=== PATIENT | female | born 1985 | race African-American/Black ===

== ENCOUNTER 2018-07-26 16:18 | Emergency (ER) | payer MEDICAID ==
--- NOTE | 2018-07-26 17:18 | ED Physician Documentation ---
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 supplementation as well as hydrochlorothiazide presents with muscle cramps and lethargy and fast heart rate similar to prior episodes of hypocalcemia.) Review of Systems Ten Systems: 10 systems reviewed and negative Constitutional: denies: Fever, Chills Nose: reports: Reviewed and negative Cardiac: reports: Reviewed and negative Respiratory: reports: Reviewed and negative PD PAST MEDICAL HISTORY - Past Medical History Cardiovascular: Hypertension Endocrine/Autoimmune: HyPOthyroidism - Present Medications Home Medications: Ambulatory Orders Medication Instructions Recorded Confirmed Bisacodyl [Dulcolax] 07/26/18 Calcitriol [Rocaltrol] 07/26/18 Calcium Carbonate [Calcium] 07/26/18 07/26/18 Calcium Carbonate [Tums (Calcium 07/26/18 Carbonate 500mg)] Levothyroxine [Synthroid] 07/26/18 Magnesium 07/26/18 Montelukast Sodium [Singulair] 07/26/18 Norgestimate-Ethinyl Estradiol 07/26/18 [Vqt-[id number]-Dohxbsau Tablet] - Allergies Allergies/Adverse Reactions: Allergies Allergy/AdvReac Type Severity Reaction Status Date / Time latex Allergy Anaphylaxis Verified 07/26/18 16:35 - Social History Does the pt smoke?: No Smoking Status: Never smoker Does the pt drink ETOH?: No Does the pt have substance abuse?: No - Family History Family history: reports: Non contributory - Immunizations Immunizations are current?: Yes PD ED PE NORMAL - Vitals Vital signs reviewed: Yes - General General: Alert and oriented X 3, No acute distress, Other (hirsute, short stature) - HEENT HEENT: PERRL, EOMI - Neck Neck: Supple, no meningeal sign, No bony TTP - Cardiac Cardiac: RRR, No murmur - Respiratory Respiratory: No respiratory distress, Clear bilaterally - Abdomen Abdomen: Non tender - Back Back: No CVA TTP, No spinal TTP - Derm Derm: Normal color, Warm and dry - Extremities Extremities: No deformity, No tenderness to palpate - Neuro Neuro: Alert and oriented X 3, Normal speech - Psych Psych: Normal mood, Normal affect Results - Vitals Vitals: Vital Signs - 24 hr 07/26/18 07/26/18 07/26/18 16:32 18:51 21:24 Temperature 37.1 C Heart Rate 84 62 Respiratory 15 16 Rate Blood Pressure 150/99 H 134/85 H 134/94 H O2 Saturation 98 98 Oxygen O2 Source Room air - Labs Labs: Laboratory Tests 07/26/18 07/26/18 07/26/18 17:05 17:05 17:05 WBC 3.6 L RBC 4.61 Hgb 13.9 Hct 41.0 MCV 89.0 MCH 30.2 MCHC 33.9 RDW 13.9 Plt Count 236 MPV 7.9 Neut # (Auto) 2.1 Lymph # (Auto) 1.2 L [place] # (Auto) 0.2 Eos # (Auto) 0.1 Baso # (Auto) 0.0 Absolute Nucleated RBC 0.00 Nucleated RBC % 0.1 Sodium 139 Potassium 3.8 Chloride 100 L Carbon Dioxide 30 Anion Gap 9.0 BUN 6 Creatinine 0.9 Estimated GFR (MDRD) 87 L Glucose 134 H Calcium 6.4 L* Magnesium 1.9 Total Bilirubin 0.5 AST 29 ALT 13 Alkaline Phosphatase 81 Total Creatine Kinase 209 Total Protein 7.7 Albumin 3.9 Globulin 3.8 Albumin/Globulin Ratio 1.0 Lipase 45 Serum HCG, Qual NEGATIVE 07/26/18 07/26/18 19:34 21:21 WBC RBC Hgb Hct MCV MCH MCHC RDW Plt Count MPV Neut # (Auto) Lymph # (Auto) Mills # (Auto) Eos # (Auto) Baso # (Auto) Absolute Nucleated RBC Nucleated RBC % Sodium Potassium Chloride Carbon Dioxide Anion Gap BUN Creatinine Estimated GFR (MDRD) Glucose Calcium 6.7 L 7.5 L Magnesium Total Bilirubin AST ALT Alkaline Phosphatase Total Creatine Kinase Total Protein Albumin Globulin Albumin/Globulin Ratio Lipase Serum HCG, Qual PD MEDICAL DECISION MAKING - ED course ED course: 33-year-old woman with recurrent hypocalcemia due to a genetic issue presents with symptoms of same and found to have a critically low calcium. She was administered 2 g of calcium gluconate with improvement in her symptoms but not much, and repeat calcium level at that point was only 0.3 units higher. Another 2 g of calcium were administered and her calcium level was much better. Departure - Departure Disposition: 01 Home, Self Care Clinical Impression: Hypocalcemia, [place] syndrome Condition: Good Record reviewed to determine appropriate education?: Yes Instructions: ED Hypocalcemia Comments: Continue your regular calcium supplements. Return if worse or for new issues.
[2018-07-26 17:41] LABS: ALBUMIN 3.9 g/dL (3.2-5.5); BILIRUBIN,TOTAL 0.5 mg/dL (0.2-1.0); CALCIUM 6.4 mg/dL (8.5-10.3); CREATININE 0.9 mg/dL (0.4-1.0); MAGNESIUM 1.9 mg/dL (1.7-2.8); TOTAL PROTEIN 7.7 g/dL (6.7-8.2)
[2018-07-26] MEDS ORDERED: CALCIUM GLUCONATE 2,000 MG in SODIUM CHLORIDE 0.9% 100ML 100 ML IV STA ×2 (17:42→20:07)
[2018-07-26 18:48] LABS: BASOPHILS % (AUTO) 1.2 %; EOSINOPHILS # (AUTO) 0.1 10^3/uL (0.0-0.7); EOSINOPHILS % (AUTO) 1.7 %; HGB - HEMOGLOBIN 13.9 g/dL (12.0-16.0); LYMPHOCYTES # (AUTO) 1.2 10^3/uL (1.5-3.5); LYMPHOCYTES % (AUTO) 34.1 %; MEAN CORPUSCULAR HEMOGLOBIN 30.2 pg (27.0-31.0); MEAN CORPUSCULAR HGB CONC 33.9 g/dL (32.0-36.0); MEAN PLATELET VOLUME 7.9 fL (7.9-10.8); MONOCYTES # (AUTO) 0.2 10^3/uL (0.0-1.0); MONOCYTES % (AUTO) 5.6 %; NEUTROPHILS # (AUTO) 2.1 10^3/uL (1.5-6.6); NEUTROPHILS % (AUTO) 57.4 %; PLT - PLATELET COUNT 236 10^3/uL (130-450); RED BLOOD COUNT 4.61 10^6/uL (4.20-5.40); RED CELL DISTRIBUTION WIDTH 13.9 % (12.0-15.0); WHITE BLOOD COUNT 3.6 x10^3/uL (4.8-10.8)
[2018-07-26 19:56] LABS: HCG,QUALITATIVE BLOOD NEGATIVE
[2018-07-26 21:25] VITALS: BP 134/94
== END 2018-07-26 21:52 | disposition home or self-care (01) ==
LOC: ED 16:18
DX: E83.51 Hypocalcemia (principal); I10 Essential (primary) hypertension; Q78.1 Polyostotic fibrous dysplasia
CPT/HCPCS: 36415; 80053; 82310; 82550; 83690; 83735; 84703; 85025; 96365; 96376; 99283

== ENCOUNTER 2018-09-10 14:13 | Outpatient (CLI) | payer MEDICAID | END 2018-09-10 14:14 | disposition critical access hospital (66) | LOC: EMS 14:13 | PROVIDERS: ATTEND Surgery | DX: R07.9 Chest pain, unspecified (principal) | CPT/HCPCS: A0425; A0429; A0999 ==

== ENCOUNTER 2018-09-10 14:32 | Inpatient (IN) | payer MEDICAID ==
[2018-09-10] MEDS ORDERED: CALCIUM GLUCONATE 2,000 MG in SODIUM CHLORIDE 0.9% 100ML 100 ML IV STA ×2 (14:46→18:27)
--- NOTE | 2018-09-10 14:49 | ED Physician Documentation ---
History of Present Illness - Stated complaint Stated Complaint: CHEST PX - Chief complaint Chief Complaint: Cardiac - History obtained from History obtained from: Patient, Family, EMS - History of Present Illness Timing: How many days ago (Several days ago) Pain level max: 7 Pain level now: 6 - Additonal information Additional information: 33-year-old female with a history of Karrie's hereditary osteodystrophy, pseudo-hypoparathyroidism type Ia. She states that she feels like her calcium has become recurrently low and she is having diffuse muscle cramping as well as chest pain. She is on calcium at home but has not had her levels checked lately. This is an ongoing issue for her. Nothing makes it better or worse currently. Review of Systems Ten Systems: 10 systems reviewed and negative Constitutional: denies: Fever, Chills Ears: denies: Ear pain Nose: denies: Rhinorrhea / runny nose, Congestion Respiratory: denies: Cough GI: denies: Abdominal Pain, Nausea, Vomiting, Diarrhea : denies: Dysuria Skin: denies: Rash Musculoskeletal: denies: Neck pain, Back pain Neurologic: denies: Headache PD PAST MEDICAL HISTORY - Past Medical History Cardiovascular: Hypertension Endocrine/Autoimmune: HyPOthyroidism - Present Medications Home Medications: Ambulatory Orders Medication Instructions Recorded Confirmed Bisacodyl [Dulcolax] 07/26/18 Calcitriol [Rocaltrol] 07/26/18 Calcium Carbonate [Calcium] 07/26/18 07/26/18 Calcium Carbonate [Tums (Calcium 07/26/18 Carbonate 500mg)] Levothyroxine [Synthroid] 07/26/18 Magnesium 07/26/18 Montelukast Sodium [Singulair] 07/26/18 Norgestimate-Ethinyl Estradiol 07/26/18 [Saz-Ak-Ovmnjmxm Tablet] - Allergies Allergies/Adverse Reactions: Allergies Allergy/AdvReac Type Severity Reaction Status Date / Time latex Allergy Anaphylaxis Verified 09/10/18 14:37 - Social History Does the pt smoke?: No Smoking Status: Never smoker Does the pt drink ETOH?: No Does the pt have substance abuse?: No - Immunizations Immunizations are current?: Yes PD ED PE NORMAL - Vitals Vital signs reviewed: Yes - General General: Alert and oriented X 3, No acute distress, Well developed/nourished, Other (Hirsute, short statured) - HEENT HEENT: PERRL, Moist mucous membranes - Neck Neck: Supple, no meningeal sign - Cardiac Cardiac: RRR, Strong equal pulses - Respiratory Respiratory: No respiratory distress, Clear bilaterally - Abdomen Abdomen: Soft, Non tender, Non distended - Derm Derm: Warm and dry, No rash - Extremities Extremities: No calf tenderness / cord - Neuro Neuro: Alert and oriented X 3 - Psych Psych: Normal mood, Normal affect Results - Vitals Vitals: Vital Signs - 24 hr 09/10/18 09/10/18 09/10/18 14:34 15:00 15:30 Temperature 35.9 C L Heart Rate 78 76 77 Respiratory 16 16 16 Rate Blood Pressure 142/99 H 125/92 H O2 Saturation 99 97 98 09/10/18 09/10/18 09/10/18 16:30 18:17 20:04 Temperature 36.5 C Heart Rate 80 85 80 Respiratory 13 16 13 Rate Blood Pressure 118/87 H 128/70 133/89 H O2 Saturation 98 99 98 09/10/18 21:07 Temperature Heart Rate 81 Respiratory 18 Rate Blood Pressure 125/75 O2 Saturation 99 Oxygen O2 Source Room air - EKG (time done) 1443 Rate: Rate (enter#) (77) Rhythm: NSR Colo: Normal Intervals: Normal OH QRS: Normal Ischemia: Normal ST segments - Labs Labs: Laboratory Tests 09/10/18 09/10/18 09/10/18 17:45 17:45 17:45 WBC 3.9 L RBC 4.76 Hgb 14.2 Hct 41.9 MCV 88.0 MCH 29.9 MCHC 33.9 RDW 13.6 Plt Count 250 MPV 7.5 L Neut # (Auto) 2.0 Lymph # (Auto) 1.6 [place] # (Auto) 0.2 Eos # (Auto) 0.1 Baso # (Auto) 0.0 Absolute Nucleated RBC 0.01 Nucleated RBC % 0.2 VBG pH Ionized Calcium Sodium 139 Potassium 4.2 Chloride 100 L Carbon Dioxide 32 Anion Gap 7.0 BUN 9 Creatinine 0.8 Estimated GFR (MDRD) 100 Glucose 98 Calcium 6.8 L Total Bilirubin 0.4 AST 26 ALT 18 Alkaline Phosphatase 83 Troponin I < 0.04 Total Protein 7.3 Albumin 3.8 Globulin 3.5 Albumin/Globulin Ratio 1.1 Lipase 43 09/10/18 09/10/18 09/10/18 17:45 21:00 21:00 WBC RBC Hgb Hct MCV MCH MCHC RDW Plt Count MPV Neut # (Auto) Lymph # (Auto) Pine # (Auto) Eos # (Auto) Baso # (Auto) Absolute Nucleated RBC Nucleated RBC % VBG pH 7.329 7.301 L Ionized Calcium 0.84 L 1.00 L Sodium Potassium Chloride Carbon Dioxide Anion Gap BUN Creatinine Estimated GFR (MDRD) Glucose Calcium 7.4 L Total Bilirubin AST ALT Alkaline Phosphatase Troponin I Total Protein Albumin Globulin Albumin/Globulin Ratio Lipase PD MEDICAL DECISION MAKING - ED course Complexity details: reviewed old records, reviewed results, re-evaluated patient, considered differential, d/w patient ED course: 33-year-old female with [place]'s hereditary osteodystrophy, calcium was replaced with 4 g of calcium gluconate over several hours in the emergency department. Ionized calcium continues to be low as is her total calcium and she is still having muscle cramping. Therefore will place in observation for further care. Discussed the case with the hospitalist who accepts. This document was made in part using voice recognition software. While efforts are made to proofread this document, sound alike and grammatical errors may occur. Departure - Departure Disposition: ED Place in Observation Clinical Impression: Hypocalcemia, Karrie hereditary osteodystrophy Hypoparathyroidism Qualifiers: Hypoparathyroidism type: unspecified Qualified Code(s): E20.9 - Hypopa rathyroidism, unspecified Condition: Stable
[2018-09-10 18:01] LABS: BASOPHILS % (AUTO) 1.2 %; EOSINOPHILS # (AUTO) 0.1 10^3/uL (0.0-0.7); EOSINOPHILS % (AUTO) 1.6 %; HGB - HEMOGLOBIN 14.2 g/dL (12.0-16.0); LYMPHOCYTES # (AUTO) 1.6 10^3/uL (1.5-3.5); LYMPHOCYTES % (AUTO) 41.2 %; MEAN CORPUSCULAR HEMOGLOBIN 29.9 pg (27.0-31.0); MEAN CORPUSCULAR HGB CONC 33.9 g/dL (32.0-36.0); MEAN PLATELET VOLUME 7.5 fL (7.9-10.8); MONOCYTES # (AUTO) 0.2 10^3/uL (0.0-1.0); MONOCYTES % (AUTO) 5.9 %; NEUTROPHILS % (AUTO) 50.1 %; PLT - PLATELET COUNT 250 10^3/uL (130-450); RED BLOOD COUNT 4.76 10^6/uL (4.20-5.40); RED CELL DISTRIBUTION WIDTH 13.6 % (12.0-15.0); WHITE BLOOD COUNT 3.9 x10^3/uL (4.8-10.8)
[2018-09-10 18:03] LABS: VBG PH 7.329 (7.31-7.41)
[2018-09-10 18:12] LABS: ALBUMIN 3.8 g/dL (3.2-5.5); ALBUMIN/GLOBULIN RATIO 1.1 (1.0-2.2); BILIRUBIN,TOTAL 0.4 mg/dL (0.2-1.0); CALCIUM 6.8 mg/dL (8.5-10.3); CREATININE 0.8 mg/dL (0.4-1.0); TOTAL PROTEIN 7.3 g/dL (6.7-8.2)
[2018-09-10] MEDS ORDERED: SODIUM CHLORIDE 0.9% 1,000 ML IV ONE (18:27)
[2018-09-10 21:08] LABS: VBG PH 7.301 (7.31-7.41)
[2018-09-10 23:25] LABS: ABG BASE EXCESS 4.2 mmol/L (-2.0-3.0); ABG HCO3 30.8 mmol/L (22.0-26.0); ABG OXYGEN SATURATION 96 % (94-98); ABG PCO2 54 mmHg (34-45); ABG PH 7.38 (7.35-7.45); ABG PO2 82 mmHg (80-100); ABG TCO2 32.5 MMOL/L (21.0-29.0); ALLEN TEST POSITIVE
[2018-09-11] MEDS ORDERED: SODIUM CHLORIDE FLUSH 0.9% 10 ML SYRINGE ONE (00:06)
--- NOTE | 2018-09-11 00:12 | HISTORY & PHYSICAL EXAMINATION ---
Chief Complaint - Chief Complaint Chief Complaint: muscle cramps and wheezing History of Present Illness - Admitted From Admitted From:: [facility] ED - History Obtained From History obtained from: patient - History of Present Illness HPI Comment/Other: Patient is a 33 y/o female with Karrie Hereditary Osteodystrophy, Pseudohypoparathyroidism Type 1A, asthma, hypothyroidism, Hypertension, pre- diabetes and Vitamin D Deficiency who presented to the ED today with wheezing and muscle cramps. She lives with her grandmother in [place]. She recently moved there from [place]. She reports that she received some stressful news concerning her family today and began having difficulty breathing and wheezing. She also adds that her grandmother with whom she lives smokes and it significantly affects her breathing. Finally it has been very cold in the house and there isn't sufficient ventillation. She has a midsternal chest pain which is reproducible on palpation. In the ED she was found to have a calcium level of 6.8. She was given 4g of calcium gluconate with only mild improvement in her levels. She was initially present for admission for hypocalcemia. However when I arrived at bedside for this exam, the patient appeared dyspneic. Her wheezing was audible 2 feet away. She appeared to have conversational dyspnea. She has a ventolin inhaler at home to use as needed. She has not used it in a long time. She did not use it today when she started wheezing because she didn't think her dyspnea was very significant. However she reported having worsening difficulty in breathing since arriving in the ED. She reports history of constipation due to pain meds she takes for chronic back pain. She denies fevers. She is morbidly obese, with a hidalgo appearance and wide neck circumference. She would be a difficult intubation if it was warranted. She is supposed to be on a CPAP at home but does not have one. As a result of her clinical presentation, she is being admitted for further management. History - Past Medical History Cardiovascular: reports: Hypertension Endocrine/Autoimmune: reports: HyPOthyroidism, Other ([place] hereditary osteodystrophy, Pseudohypoparathyroidism type 1) - Past Surgical History General: reports: Other (hernia repair) - Family & Social History Family History Comment/Other: Maternal Grandmother: valvular heart disease Living arrangement: At home Living Situation: Unknown (with grandmother) Social History Notes: She recently moved to [place] from [place] to live with her grandmother. She is independent of activities of daily living. She cannot drive. Uses public transportation. Waiting for job placement. Used to work at a [employer] in [place]. - Substance History Use: Uses substance without health or social issues: Cannabis - POLST POLST Status: Full Code Meds/Allgy - Home Medications Home Medications: Ambulatory Orders Medication Instructions Recorded Confirmed Bisacodyl [Dulcolax] 07/26/18 Calcitriol [Rocaltrol] 07/26/18 Calcium Carbonate [Calcium] 07/26/18 07/26/18 Calcium Carbonate [Tums (Calcium 07/26/18 Carbonate 500mg)] Levothyroxine [Synthroid] 07/26/18 Magnesium 07/26/18 Montelukast Sodium [Singulair] 07/26/18 Norgestimate-Ethinyl Estradiol 07/26/18 [Pdo-Bk-Aabizcuy Tablet] - Allergies Allergies/Adverse Reactions: Allergies Allergy/AdvReac Type Severity Reaction Status Date / Time latex Allergy Anaphylaxis Verified 09/10/18 14:37 Review of Systems - Constitutional Constitutional: reports: Chills. denies: Weakness, Poor appetite - Eyes Eyes: denies: Pain, Blurred vision, Dipolpia - Ears, Nose & Throat Ears, Nose & Throat: denies: Ear pain, Hearing loss, Nasal pain, Sore throat - Cardiovascular Cariovascular: denies: Irregular heart rate, Chest pain, Edema, Syncope - Respiratory Respiratory: reports: Wheezing, SOB at rest, Pleuritic pain. denies: Cough, Sputum production - Gastrointestinal Gastrointestinal: reports: Constipation. denies: Black stools, Nausea, Vomiting - Genitourinary Genitourinary: denies: Dysuria, Frequency, Urgency, Hematuria - Musculoskeletal Musculoskeletal: reports: Back pain - Integumentary Integumentary: reports: Dryness. denies: Rash, Lesions - Neurological Neurological: denies: Headache, Dizziness, Numbness - Psychiatric Psychiatric: denies: Depression, Anxiety, Suicidal - Endocrine Endocrine: denies: Polyuria, Polydypsia - Hematologic/Lymphatic Hematologic/Lymphatic: denies: Anemia, Bruising, Petechiae Prior Level of Functionality: Patient is independent of activities of daily living. She is able to cook for herself and do other jobs but she cannot drive. She uses public transportation Exam - Vital Signs Vital Signs: Vital Signs x48h Temp Pulse Resp BP Pulse Ox 09/10/18 23:40 68 14 131/93 H 97 09/10/18 22:58 77 13 135/103 H 97 09/10/18 21:07 81 18 125/75 99 09/10/18 20:04 36.5 C 80 13 133/89 H 98 09/10/18 18:17 85 16 128/70 99 09/10/18 16:30 80 13 118/87 H 98 - Physical Exam General Appearance: positive: Alert, Moderate distress (moderate respiratory distress), Other (Conversational dyspnea) Eyes Bilateral: positive: Normal inspection, PERRL, EOMI ENT: positive: Other (Wide neck circumferemce) Respiratory: positive: Chest non-tender (reproducible), Wheezes, Other (Decreased breath sounds) Cardiovascular: positive: Tachycardia Abdomen: positive: Non-tender, Nml bowel sounds, No distention. negative: Guarding, Rebound Skin: positive: Color nml, No rash, Warm, Dry Extremities: positive: Non-tender, Full ROM, Other (Fingers, especially 4th and 5th digits appear very short. Hands proportionately smaller) Neurologic/Psychiatric: positive: Oriented x3 Sepsis Event Note (H) - Sepsis Criteria Sepsis Criteria: Recorded Heart Rate greater than 90 bpm, WBC count greater than 12,000 or less than 4000 Conclusion/Plan - Problem List (1) Asthma exacerbation, mild Conclusion/Plan: Multiple triggers: Sudden new stressors related to family, second hand smoke exposure at home and cold temperatures. Patient admitted to the ICU with plan to initiate bipap Solumedrol 40mg q4hrs. Duoneb q4hrs prn (2) Karrie hereditary osteodystrophy Conclusion/Plan: Congenital, Chronic This is associated with Pseudohypoparathyroidism Type 1A. (PHP Type 1A) PHP Type 1A is an autosomal dominant disease with [id number] mutation in the gene GNAS1. This leads to decrease in sensitivity of the PTH receptors to PTH Karrie Hereditary syndrome is a constellation of findings associated with PHP Type 1A These include: Round facies, short stature, short fourth metatarsal bones obesity, subcutaneous calcifications and developemental delay. The patient exhibits most of this. (3) Hypocalcemia Conclusion/Plan: Likely 2/2 [place] hereditary osteodystrophy. Patient received 4g of Calcium gluconate in the ED. Will recheck in the am and correct as indicated Expect improvement in muscle cramps with correction of calcium levels. Will check Vit D, Mg and Phos (4) Hypothyroidism Conclusion/Plan: Will resume levothyroxine once verified Qualifiers: Hypothyroidism type: unspecified Qualified Code(s): E03.9 - Hypothyroidism, unspecified (5) Hypertension Conclusion/Plan: Not on any medications currently. Used to be on HCTZ. Will order a prn medication if SBP> 160 (6) Pre-diabetes Conclusion/Plan: In light of administering solumedrol for asthma, will monitor blood glucose and order a sliding scale as indicated - Lab Results Fish Bones: 09/11/18 04:15 09/11/18 04:15 Core Measures - Anticipated LOS I expect patient to be DC'd or transferred within 96 hours.: Yes - DVT/VTE - Prophylaxis VTE/DVT Device ordered at admit?: Yes VTE/DVT Prophylaxis med ordered at admit?: Yes
[2018-09-11] MEDS: methylPREDNISolone SUCCINATE 40 MG/ML VIAL IVP SCH ×5 (00:44→23:39)
[2018-09-11] MEDS: SODIUM CHLORIDE FLUSH 0.9% 10 ML SYRINGE IVP SCH ×4 (00:44→23:39)
[2018-09-11 04:25] LABS: BASOPHILS % (AUTO) 0.4 %; EOSINOPHILS % (AUTO) 0.3 %; HGB - HEMOGLOBIN 14.1 g/dL (12.0-16.0); LYMPHOCYTES # (AUTO) 0.7 10^3/uL (1.5-3.5); LYMPHOCYTES % (AUTO) 14.8 %; MEAN CORPUSCULAR HEMOGLOBIN 29.9 pg (27.0-31.0); MEAN CORPUSCULAR HGB CONC 34.3 g/dL (32.0-36.0); MEAN CORPUSCULAR VOLUME 87.3 fL (81.0-99.0); MEAN PLATELET VOLUME 7.6 fL (7.9-10.8); MONOCYTES # (AUTO) 0.1 10^3/uL (0.0-1.0); NEUTROPHILS # (AUTO) 4.2 10^3/uL (1.5-6.6); NEUTROPHILS % (AUTO) 82.5 %; PLT - PLATELET COUNT 211 10^3/uL (130-450); RED BLOOD COUNT 4.72 10^6/uL (4.20-5.40); RED CELL DISTRIBUTION WIDTH 13.9 % (12.0-15.0)
[2018-09-11 04:30] LABS: CALCIUM 7.7 mg/dL (8.5-10.3); CREATININE 0.7 mg/dL (0.4-1.0)
[2018-09-11 04:52] LABS: HB2 TOTAL 14.8 g/dL; HEMOGLOBIN A1C 0.44 g/dL; HEMOGLOBIN A1C % 4.9 % (4.6-6.2)
[2018-09-11 05:24] LABS: VBG PH 7.368 (7.31-7.41)
[2018-09-11] MEDS ORDERED: CALCIUM GLUCONATE 2,000 MG in SODIUM CHLORIDE 0.9% 100ML 100 ML IV ONE ×2 (05:46→12:30)
[2018-09-11] MEDS: INSULIN ASPART 300 UNIT/3 ML PEN SUBQ SCH ×4 (08:21→20:32)
[2018-09-11] MEDS: ACETAMINOPHEN 325 MG TABLET PO PRN ×2 (10:00→13:58)
[2018-09-11 10:24] LABS: CALCIUM 8.1 mg/dL (8.5-10.3); PHOSPHORUS 3.8 mg/dL (2.5-4.6)
[2018-09-11 10:29] LABS: VBG PH 7.342 (7.31-7.41)
[2018-09-11] MEDS: IPRATROPIUM/ALBUTEROL 3 ML NEB INH PRN ×2 (11:14→15:31)
[2018-09-11] MEDS: MAGNESIUM OXIDE 400 MG TABLET PO SCH ×2 (11:54→20:32)
[2018-09-11] MEDS: CHOLECALCIFEROL 5,000 UNIT CAPSULE PO SCH (11:55)
[2018-09-11] MEDS: CALCIUM CARBONATE CHEW 500 MG TABLET PO SCH ×3 (13:58→21:39)
--- NOTE | 2018-09-11 14:54 | PROVIDER PROGRESS NOTE ---
Assessment/Plan - Problem List (1) Asthma exacerbation, mild Assessment/Plan: Patient no longer wheezing and not tachypneic, Continue steroids and inhalers. Move out of ICU today. Assess with ambulation. 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 She does not have an established PCP yet, since moving here from [place] 1 month ago. Discussed with Case Management; she has [employer] Insurance meaning that she will need to go off [facility] for a PCP. I will ask Social Work to consult, and maybe have a family meeting with the person she moved in with on [facility]. (3) Hypoparathyroidism Qualifiers: Hypoparathyroidism type: unspecified Qualified Code(s): E20.9 - Hypoparathyroidism, unspecified Assessment/Plan: Patient knows how to manage this. She has not filled her meds since last parmacy pick-up in [place] 4 weeks ago, I suspect she ran out of all or most, precipitating these serum abnormalities. Restart her usual meds. (4) Hypocalcemia Assessment/Plan: Will replace and restart her usual meds. (5) Pre-diabetes Assessment/Plan: Continue ss Insulin coverage while here. She needs outpatient management including weight reduction. (6) Morbid obesity with BMI of 50.0-59.9, adult Assessment/Plan: As above. Will ask for PT eval. Possible DCh in am tomorrow. - Current Meds Current Meds: Current Medications Generic Name Dose Route Start Last Admin Trade Name Freq PRN Reason Stop Dose Admin Acetaminophen 650 mg 09/10/18 23:09 09/11/18 13:58 Tylenol PO 650 mg Q4HR PRN Administration Pain 1 to 4 Albuterol/Ipratropium 3 ml 09/10/18 23:25 09/11/18 11:14 Duoneb INH 3 ml Q4HR PRN Administration Wheezing Calcium Carbonate/Glycine 500 mg 09/11/18 14:00 09/11/18 13:58 Tums PO 500 mg TID GAIL Administration Cholecalciferol 5,000 unit 09/11/18 12:00 09/11/18 11:55 Vitamin D3 PO 5,000 unit DAILY GAIL Administration Insulin Aspart 1 - 5 unit 09/11/18 08:00 09/11/18 11:57 Novolog SUBQ 2 unit 0800,1200,1700,2100 AGIL Administration Protocol Magnesium Oxide 400 mg 09/11/18 12:00 09/11/18 11:54 Mag Ox PO 400 mg BID GAIL Administration Methylprednisolone 40 mg 09/11/18 00:00 09/11/18 11:54 Solu-Medrol (40mg Vial) IVP 40 mg Q6HR GAIL Administration Sodium Chloride 10 ml 09/11/18 01:00 09/11/18 06:27 Normal Saline Flush 0.9% IVP 10 ml 0100,0900,1700 GAIL Administration - Lab Result Fish Bone Diagrams: 09/11/18 04:15 09/11/18 04:15 - Additional Planning My Orders: My Active Orders 09/11/18 08:16 Peak Expiratory Flow Rate (PEF [RC] .tid 09/11/18 12:00 Cholecalciferol [Vitamin D3] 5,000 unit PO DAILY Magnesium Oxide [Mag Ox] 400 mg PO BID 09/11/18 14:00 Calcium Carbonate [Tums] 500 mg PO TID 09/11/18 15:30 CALCIUM, RFLX TO IONIZED CA IF [CHEM] Routine Subjective - Subjective Patient Reports: Feeling Better, Resting Comfortably Objective Vital Signs: Vital Signs - 24 hr 09/10/18 09/10/18 09/10/18 15:00 15:30 16:30 Temperature Heart Rate 76 77 80 Heart Rate [ Monitoring electrodes] Respiratory 16 16 13 Rate Blood Pressure 125/92 H 118/87 H Blood Pressure [Left Radial artery] O2 Saturation 97 98 98 09/10/18 09/10/18 09/10/18 18:17 20:04 21:07 Temperature 36.5 C Heart Rate 85 80 81 Heart Rate [ Monitoring electrodes] Respiratory 16 13 18 Rate Blood Pressure 128/70 133/89 H 125/75 Blood Pressure [Left Radial artery] O2 Saturation 99 98 99 09/10/18 09/10/18 09/11/18 22:58 23:40 01:00 Temperature 36.8 C Heart Rate 77 68 Heart Rate [ 69 Monitoring electrodes] Respiratory 13 14 14 Rate Blood Pressure 135/103 H 131/93 H Blood Pressure 127/88 H [Left Radial artery] O2 Saturation 97 97 95 09/11/18 09/11/18 09/11/18 04:00 07:38 07:50 Temperature 36.7 C 36.8 C Heart Rate 71 Heart Rate [ 67 82 Monitoring electrodes] Respiratory 12 16 16 Rate Blood Pressure Blood Pressure 134/95 H 130/96 H [Left Radial artery] O2 Saturation 93 96 09/11/18 09/11/18 09/11/18 07:51 11:14 13:00 Temperature 36.8 C 37.1 C Heart Rate 71 92 Heart Rate [ 104 H Monitoring electrodes] Respiratory 16 15 14 Rate Blood Pressure Blood Pressure 159/106 H [Left Radial artery] O2 Saturation 96 96 Oxygen O2 Source Room air I&O (Last 24 Hrs): Intake and Output Totals x24h 09/09/18 09/10/18 09/11/18 23:59 23:59 23:59 Intake Total 1240 1290 Output Total 0 Balance 1240 1290 General: Alert HEENT: Atraumatic, Mucous membr. moist/pink Neck: Supple, Other (short and obese neck) Neuro: Alert Cardiovascular: Regular rate, Other (distant heart sounds due toobese body habitus) Respiratory: No respiratory distress, Breath sounds nml Abdomen: Soft, Other (obese) Extremities: Other (1+ pre-tibial edema) - Results Results: Laboratory Results WBC 5.0 x10^3/uL (4.8-10.8) 09/11/18 04:15 RBC 4.72 10^6/uL (4.20-5.40) 09/11/18 04:15 Hgb 14.1 g/dL (12.0-16.0) 09/11/18 04:15 Hct 41.2 % (37.0-47.0) 09/11/18 04:15 MCV 87.3 fL (81.0-99.0) 09/11/18 04:15 MCH 29.9 pg (27.0-31.0) 09/11/18 04:15 MCHC 34.3 g/dL (32.0-36.0) 09/11/18 04:15 RDW 13.9 % (12.0-15.0) 09/11/18 04:15 Plt Count 211 10^3/uL (130-450) 09/11/18 04:15 MPV 7.6 fL (7.9-10.8) L 09/11/18 04:15 Neut # (Auto) 4.2 10^3/uL (1.5-6.6) 09/11/18 04:15 Lymph # (Auto) 0.7 10^3/uL (1.5-3.5) L 09/11/18 04:15 Taylor # (Auto) 0.1 10^3/uL (0.0-1.0) 09/11/18 04:15 Eos # (Auto) 0.0 10^3/uL (0.0-0.7) 09/11/18 04:15 Baso # (Auto) 0.0 10^3/uL (0.0-0.1) 09/11/18 04:15 Absolute Nucleated RBC 0.00 x10^3/uL 09/11/18 04:15 Nucleated RBC % 0.0 /100WBC 09/11/18 04:15 Bld Gas Analysis Time 2323 09/10/18 23:10 Sample Site RIGHT RADIAL 09/10/18 23:10 ABG pH 7.38 (7.35-7.45) 09/10/18 23:10 ABG pCO2 54 mmHg (34-45) H 09/10/18 23:10 ABG pO2 82 mmHg (80-100) 09/10/18 23:10 ABG HCO3 30.8 mmol/L (22.0-26.0) H 09/10/18 23:10 ABG Total CO2 32.5 MMOL/L (21.0-29.0) H 09/10/18 23:10 ABG O2 Saturation 96 % (94-98) 09/10/18 23:10 ABG Base Excess 4.2 mmol/L (-2.0-3.0) H 09/10/18 23:10 [place] Test POSITIVE 09/10/18 23:10 VBG pH 7.342 (7.31-7.41) 09/11/18 10:05 Ionized Calcium 0.99 mmol/L (1.15-1.33) L 09/11/18 10:05 Sodium 139 mmol/L (135-145) 09/11/18 04:15 Potassium 4.0 mmol/L (3.5-5.0) 09/11/18 04:15 Chloride 102 mmol/L (101-111) 09/11/18 04:15 Carbon Dioxide 30 mmol/L (21-32) 09/11/18 04:15 Anion Gap 7.0 (6-13) 09/11/18 04:15 BUN 9 mg/dL (6-20) 09/11/18 04:15 Creatinine 0.7 mg/dL (0.4-1.0) 09/11/18 04:15 Estimated GFR (MDRD) 117 (>89) 09/11/18 04:15 Glucose 112 mg/dL (70-100) H 09/11/18 04:15 POC Whole Bld Glucose 183 mg/dL (70 - 100) H 09/11/18 11:41 Glycated Hemoglobin 4.9 % (4.6-6.2) 09/11/18 04:15 Estim Average Glucose 94 (70-100) 09/11/18 04:15 Calcium 8.1 mg/dL (8.5-10.3) L 09/11/18 10:05 Ionized Calcium YES 09/11/18 10:05 Phosphorus 3.8 mg/dL (2.5-4.6) 09/11/18 10:05 Magnesium 2.0 mg/dL (1.7-2.8) 09/11/18 04:15 Total Bilirubin 0.4 mg/dL (0.2-1.0) 09/10/18 17:45 AST 26 IU/L (10-42) 09/10/18 17:45 ALT 18 IU/L (10-60) 09/10/18 17:45 Alkaline Phosphatase 83 IU/L (42-121) 09/10/18 17:45 Troponin I < 0.04 ng/mL (<0.49) 09/10/18 17:45 Total Protein 7.3 g/dL (6.7-8.2) 09/10/18 17:45 Albumin 3.7 g/dL (3.2-5.5) 09/11/18 04:15 Globulin 3.5 g/dL (2.1-4.2) 09/10/18 17:45 Albumin/Globulin Ratio 1.1 (1.0-2.2) 09/10/18 17:45 Lipase 43 U/L (22-51) 09/10/18 17:45 MRSA Surveill Initial NEGATIVE (NEGATIVE) 09/11/18 00:00 Sepsis Event Note (H) - Sepsis Criteria Sepsis Criteria: Recorded Heart Rate greater than 90 bpm, WBC count greater than 12,000 or less than 4000
[2018-09-11 15:52] LABS: CALCIUM 8.1 mg/dL (8.5-10.3)
[2018-09-11 15:57] LABS: VBG PH 7.364 (7.31-7.41)
[2018-09-11] MEDS: CALCIUM CITRATE 250 MG TABLET PO SCH ×2 (16:56→20:32)
[2018-09-11] MEDS: SODIUM CHLORIDE FLUSH 0.9% 10 ML SYRINGE IVP PRN (23:39)
[2018-09-12 05:18] LABS: BASOPHILS % (AUTO) 0.1 %; HGB - HEMOGLOBIN 13.8 g/dL (12.0-16.0); LYMPHOCYTES # (AUTO) 0.8 10^3/uL (1.5-3.5); LYMPHOCYTES % (AUTO) 6.4 %; MEAN CORPUSCULAR HEMOGLOBIN 29.6 pg (27.0-31.0); MEAN CORPUSCULAR HGB CONC 33.9 g/dL (32.0-36.0); MEAN CORPUSCULAR VOLUME 87.3 fL (81.0-99.0); MEAN PLATELET VOLUME 7.8 fL (7.9-10.8); MONOCYTES # (AUTO) 0.2 10^3/uL (0.0-1.0); MONOCYTES % (AUTO) 1.8 %; NEUTROPHILS # (AUTO) 11.6 10^3/uL (1.5-6.6); NEUTROPHILS % (AUTO) 91.7 %; PLT - PLATELET COUNT 259 10^3/uL (130-450); RED BLOOD COUNT 4.66 10^6/uL (4.20-5.40); RED CELL DISTRIBUTION WIDTH 13.6 % (12.0-15.0); WHITE BLOOD COUNT 12.6 x10^3/uL (4.8-10.8)
[2018-09-12 05:24] LABS: CALCIUM 8.4 mg/dL (8.5-10.3); CREATININE 0.7 mg/dL (0.4-1.0)
[2018-09-12] MEDS: CALCIUM CARBONATE CHEW 500 MG TABLET PO SCH ×2 (06:34→07:59)
[2018-09-12] MEDS: methylPREDNISolone SUCCINATE 40 MG/ML VIAL IVP SCH ×2 (06:34→12:00)
[2018-09-12] MEDS: SODIUM CHLORIDE FLUSH 0.9% 10 ML SYRINGE IVP PRN (06:34)
[2018-09-12] MEDS ORDERED: LEVOTHYROXINE 100 MCG TABLET PO SCH (07:00)
[2018-09-12] MEDS ORDERED: LEVOTHYROXINE 75 MCG TABLET PO SCH (07:00)
[2018-09-12] MEDS: INSULIN ASPART 300 UNIT/3 ML PEN SUBQ SCH ×2 (07:58→11:55)
[2018-09-12] MEDS: CALCIUM CITRATE 250 MG TABLET PO SCH ×2 (07:59→12:00)
[2018-09-12] MEDS: CHOLECALCIFEROL 5,000 UNIT CAPSULE PO SCH (07:59)
[2018-09-12] MEDS: SODIUM CHLORIDE FLUSH 0.9% 10 ML SYRINGE IVP SCH (07:59)
[2018-09-12] MEDS: MAGNESIUM OXIDE 400 MG TABLET PO SCH (07:59)
--- NOTE | 2018-09-12 09:01 | Discharge Plan ---
Discharge Plan Disposition: Home, Self Care Condition: Stable Prescriptions: Calcitriol [Rocaltrol] 1.5 mcg PO DAILY #180 capsule Calcium Carbonate [Antacid] 1,000 mg PO BID #300 tab.chew Cetirizine [ZyrTEC] 10 mg PO DAILY #30 tablet Cholecalciferol [Vitamin D3] 5,000 unit PO DAILY #30 capsule Docusate Sodium 100 mg PO BID #60 capsule Fluticasone/Salmeterol [Advair 500-50 Diskus] 1 puffs INH BID #60 blst.w.dev Levothyroxine Sodium [Synthroid] 175 mcg PO QDAC #30 tablet Magnesium Oxide 400 mg PO BID #60 tablet Montelukast [Singulair] 10 mg PO DAILY #30 tablet Norgestimate-Ethinyl Estradiol [Bir-Mx-Qvgjqumk Tablet] 1 tab PO DAILY #30 tablet Diet: Regular Activity Restrictions: Activity as Tolerated Shower Restrictions: No Instruction Topics: Hypocalcemia Dc, Parathyroid Hormone, Weight Manage Get Started Additional Instructions or Follow Up instructions: You were admitted to treat an asthmatic attack and low calcium. It appears you must have run out of your medications, which led to these problems. You are being discharged with prescriptions for only a 1 month supply of your usual medications, the prescriptions were electronically sent to [facility] in [place] (since there was no choice of pharmacy indicated by you, and I could not reach your Grandmother to discuss). You need to find a local Primary Care Provider to prescribe these for you and have follow-up appointments. Please contact the offices that were provided to you by our staff, to get an appointment there in this month of September with a PCP. If you have new or worsening symptoms, come to the Emergency Room. No Smoking: If you smoke, Please STOP! Call for help.
[2018-09-12] MEDS: IPRATROPIUM/ALBUTEROL 3 ML NEB INH PRN (09:03)
[2018-09-12 09:19] VITALS: BP 131/81
[2018-09-12 09:33] LABS: CALCIUM 8.4 mg/dL (8.5-10.3); PHOSPHORUS 2.8 mg/dL (2.5-4.6)
--- NOTE | 2018-09-12 11:27 | ADVANCE CARE PLANNING NOTE ---
Advance Care Planning - Date/Time Date: 09/12/18 Time: 10:00 - Purpose of encounter Text: To establish her wishes regarding her care AND To establish her understanding of her hereditary condition AND To establish her plan since moving to [facility] 4 weeks ago, in order to live with her grandmother - Parties in attendance Parties in attendance: I spoke to the patient in her room in her bed - Decisional capacity Decisional capacity of: This is unknown, since she has a has a history of developmental delay due to her [place] Hereditary Osteodystrophy. I attempted to assess her thinking process and her memory and understanding of different topics. She will need longer assessment and review of old records from her [place] caregivers. - Subjective/Patient's story Subjective/Patient's story: She came to the ER when she was SOB, from an asthmatic exacerbation. Her labs showed that she was very hypocalcemic, requiring admission for replacement of Calcium. In the process of admission, she stated that she was put of her meds, and that she had not yet established with a PCP. The Pharmacist here was able to confirm that she last filled her prescriptions in [place] 1 month ago. She subsequently moved to [facility] to live with her grandmother. - Objective/Medical story Objective/Medical Story: This is a 33 y/o black female, who has [place]'s Hereditary Osteodystrophy, leaving her with developmental delay, sghort digits, short stature, short neck and pseudohypoparathyroidism with need for Ca and vit D replacement. She was a very hard stick for iv placement and Anesthesia needed to be called in for iv start. She was in a mild asthmatic exacerbation, gor steroids and nebs and improved overnight. She used to have CPAP device for sleep apnea management but it is still packed in a moving box. She was in the ICU for BIPAP ordered at admission, but never needed that started. She also needed iv calcium replacement plus her oral meds continued. Her calcium level is better after 2 days of treatment and she is stable to be [facility] today. He Social History is significant: Her father , her mother has little or no contact with her, she was living in a "Home" in [place] for the past month, she has a 22 year old younger brother that cannot be responsible for her. The patient was working at a [employer] center, in [facility]. The grandmother reached out to the patient and agreed to take her in, so the patient moved here 4 weeks ago. She has no established caregiver here yet. First I was told that the patient's [employer] Insurance required that she get [place]. next, I was told today that her Insurance just changed today (? first of the month) to [facility] and she could get a PCP locally. Next, when the grandmother came in today, she told the staff that the patient derian has an appointment pending at the [facility]. The patient will be discharged with a 1 month prescriptions supply of all her medications. Since I could not reach the grandmother, I e-sent the prescriptions to [facility] in [place] (where she lives) and handed the RN a stack of paper prescriptions taht they can fill anywhere they like. - Goals of Care Goals of care determinations: She will be established with a PCP at the [facility]. Social work provided the garndmother with other resources to help the patient. - Plan Plan: As above in Goals of Care. - Code Status Code Status: Attempt Resuscitation - Time Spent on Advance Care Planning Time spent on advance care plannin min
--- NOTE | 2018-09-17 14:56 | DISCHARGE SUMMARY ---
Physician: Kamla Ramirez MD DATE OF ADMISSION: 09/10/2018 DATE OF DISCHARGE: 09/12/2018 HISTORY OF PRESENT ILLNESS: This is a 33-year-old black female with a history of [place] Hereditary Osteodystrophy, pseudohypoparathyroidism type 1A, asthma, hypothyroidism, hypertension, prediabetes and morbid obesity, who moved to to [facility] 4 weeks ago from [place] to live with her grandmother. The patient presented to the emergency room with marked shortness of breath, wheezing after getting stressful news and from the cold air in the apartment and exposure to tobacco smoke from her grandmother. In the emergency room, she was found to have a calcium level of 6.8 and was given 4 g of calcium gluconate and only had mild improvement in her levels. She was also very short of breath despite nebulizer treatment in the emergency room; was taking breaths between every word. She reported having run out of all of her medications; they were last filled one month ago in [place] (later confirmed by pharmacy here). She did not have an appointment with a PCP yet. She was supposed to be using a CPAP machine, but had not found it yet in the moving boxes from [place]. Patient was admitted to the ICU for management of her significant hypocalcemia and her significant shortness of breath, in preparation to use a BiPAP for supplemental oxygen and ventilation. HOSPITAL COURSE AND DISCHARGE DIAGNOSES 1. Asthma exacerbation, mild. The patient was started on IV steroids, nebulizers, and improved by 12 hours and did not need the BiPAP. She was kept on nebulizers while here, and her inhalers were prescribed for a 30-day supply at the time of discharge. Because of her hereditary condition, it is unclear if she understands the importance of staying on her medications and not running out. 2. [place] Hereditary Osteodystrophy. The patient carries this diagnosis and this includes short stature, obesity, short fingers, and developmental delay. Social Work had to reach out to her grandmother and confirmed that a new PCP appointment was made and that a discharge for this patient was safe. The patient did go home with her grandmother. 3. Hypoparathyroidism. The patient was put on her medications and told to fill the prescriptions. A 30-day supply was ordered until she sees her PCP. 4. Hypocalcemia. The patient required IV and p.o. calcium replacement. Her ionized calcium was very low at 1.1, but there were no signs of tetany. She was placed on her same regimen at the time of discharge. 5. Pre-diabetes. The patient's morbid obesity is adding to this problem. I attempted to assess her memory and her understanding of her disease processes in order to start education and recommendations. It will require longer evaluation and review of her records from [place] for further management of all her conditions. 6. Morbid obesity with a body mass index of 50-59 in an adult. Plan as in #5. LABS AND IMAGING: Reviewed and summarized above. ALLERGIES: LATEX. MEDICATIONS AT THE TIME OF DISCHARGE 1. Calcitriol 1.5 mcg p.o. daily. 2. Calcium carbonate 1000 mg p.o. b.i.d. 3. Zyrtec 10 mg daily. 4. Vitamin D3 5000 units daily. 5. Colace 100 mg b.i.d. 6. Advair Diskus 1 puff b.i.d. 7. Synthroid 175 mcg daily. 8. Magnesium oxide 400 mg b.i.d. 9. Singulair 10 mg p.o. daily. 10. TriLo-Sprintec 1 tab p.o. daily. CONDITION AT DISCHARGE: Stable. PHYSICAL EXAMINATION VITAL SIGNS: Blood pressure 131/81, heart rate 70-100 in sinus rhythm, afebrile, room air saturation 96%. HEENT: Morbid obesity. NECK: Morbidly obese and short neck. CHEST: Clear breath sounds anteriorly. Large breasts. HEART: Heart sounds are very distant. ABDOMEN: Soft, obese. I cannot rule out organomegaly. EXTREMITIES: No leg edema. 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 NEUROLOGIC: No focal signs except developmental delay. FOLLOWUP: The grandmother confirmed that there is an appointment pending with a new PCP. CODE STATUS: FULL CODE. Time required to complete this entire discharge, chart review, prescription orders: 60 minutes. TD: 09/17/2018 14:21 ASHLEE
== END 2018-09-12 13:04 | disposition home or self-care (01) | DRG 202 ==
LOC: EDUNIT# → ED 14:32 → ICU 23:09
PROVIDERS: ADMIT Internal Medicine; ATTEND Internal Medicine
DX: J45.901 Unspecified asthma with (acute) exacerbation (principal); Z68.43 Body mass index [BMI] 50.0-59.9, adult; Q78.1 Polyostotic fibrous dysplasia; E20.9 Hypoparathyroidism, unspecified; I10 Essential (primary) hypertension; E03.9 Hypothyroidism, unspecified; Z91.040 Latex allergy status; E83.51 Hypocalcemia; R73.03 Prediabetes; E66.01 Morbid (severe) obesity due to excess calories; Z77.22 Contact with and (suspected) exposure to environmental tobacco smoke (acute) (chronic); E55.9 Vitamin D deficiency, unspecified; R25.2 Cramp and spasm
CPT/HCPCS: 36415; 36600; 80048; 80053; 82040; 82306; 82310; 82330; 82803; 83036; 83690; 83735; 84100; 84484; 85025; 87150; 93005; 94150; 94640; 96365; 96366; 99284; 99285

== ENCOUNTER 2018-09-18 13:00 | Observation (INO) | payer MEDICAID ==
[2018-09-18 14:11] LABS: ALBUMIN 3.8 g/dL (3.2-5.5); BILIRUBIN,TOTAL 0.4 mg/dL (0.2-1.0); CALCIUM 6.3 mg/dL (8.5-10.3); CREATININE 0.6 mg/dL (0.4-1.0); TOTAL PROTEIN 7.7 g/dL (6.7-8.2)
[2018-09-18] MEDS ORDERED: SODIUM CHLORIDE 0.9% 1,000 ML IV ONE (16:29)
[2018-09-18] MEDS ORDERED: CALCIUM GLUCONATE 2,000 MG in SODIUM CHLORIDE 0.9% 100ML 100 ML IV STA (16:29)
--- NOTE | 2018-09-18 16:29 | ED Physician Documentation ---
History of Present Illness - Stated complaint Stated Complaint: HEART RACING/FOOT AND LEG PX - Chief complaint Chief Complaint: Cardiac - History obtained from History obtained from: Patient - History of Present Illness Timing: Today Pain level max: 0 Pain level now: 0 Improved by: calcium Worsened by: nothing - Additonal information Additional information: 33-year-old female with [place]'s syndrome. States that she is having muscle spasms and cramping again. Typical of her symptoms when she has hypocalcemia. Recently admitted for same. Review of Systems Ten Systems: 10 systems reviewed and negative Constitutional: denies: Fever, Chills Ears: denies: Ear pain Nose: denies: Rhinorrhea / runny nose, Congestion Throat: denies: Sore throat Cardiac: reports: Palpitations Respiratory: denies: Dyspnea, Cough GI: denies: Abdominal Pain, Nausea, Vomiting, Diarrhea Skin: denies: Rash Musculoskeletal: denies: Neck pain, Back pain Neurologic: denies: Headache PD PAST MEDICAL HISTORY - Past Medical History Cardiovascular: Hypertension Endocrine/Autoimmune: HyPOthyroidism, Other ([place] hereditary osteodystrophy, Pseudohypoparathyroidism type 1) - Past Surgical History General: Other (hernia repair) - Present Medications Home Medications: Ambulatory Orders Medication Instructions Recorded Confirmed Calcitriol [Rocaltrol] 1.5 mcg PO DAILY #180 capsule 09/12/18 09/18/18 Calcium Carbonate [Antacid] 1,000 mg PO BID #300 tab.chew 09/12/18 09/18/18 Cetirizine [ZyrTEC] 10 mg PO DAILY #30 tablet 09/12/18 09/18/18 Cholecalciferol [Vitamin D3] 5,000 unit PO DAILY #30 capsule 09/12/18 09/18/18 Docusate Sodium 100 mg PO BID #60 capsule 09/12/18 09/18/18 Fluticasone/Salmeterol [Advair 1 puffs INH BID #60 blst.w.dev 09/12/18 09/18/18 500-50 Diskus] Levothyroxine Sodium [Synthroid] 175 mcg PO QDAC #30 tablet 09/12/18 09/18/18 Magnesium Oxide 400 mg PO BID #60 tablet 09/12/18 09/18/18 Montelukast [Singulair] 10 mg PO DAILY #30 tablet 09/12/18 09/18/18 Norgestimate-Ethinyl Estradiol 1 tab PO DAILY #30 tablet 09/12/18 09/18/18 [[id number] Tablet] - Allergies Allergies/Adverse Reactions: Allergies Allergy/AdvReac Type Severity Reaction Status Date / Time latex Allergy Anaphylaxis Verified 09/18/18 13:07 - Social History Does the pt smoke?: No Smoking Status: Never smoker Does the pt drink ETOH?: No Does the pt have substance abuse?: No - Immunizations Immunizations are current?: Yes - POLST POLST Status: Full Code PD ED PE NORMAL - Vitals Vital signs reviewed: Yes - General General: Alert and oriented X 3, No acute distress - HEENT HEENT: Moist mucous membranes - Neck Neck: Supple, no meningeal sign - Cardiac Cardiac: RRR - Respiratory Respiratory: No respiratory distress, Clear bilaterally - Abdomen Abdomen: Soft, Non tender, Non distended - Back Back: No spinal TTP - Derm Derm: Warm and dry - Extremities Extremities: No tenderness to palpate, No calf tenderness / cord - Neuro Neuro: Alert and oriented X 3 - Psych Psych: Normal mood, Normal affect Results - Vitals Vitals: Vital Signs - 24 hr 09/18/18 09/18/18 13:05 16:01 Temperature 36.9 C 37.1 C Heart Rate 93 79 Respiratory 20 16 Rate Blood Pressure 106/78 129/77 O2 Saturation 97 98 Oxygen O2 Source Room air - EKG (time done) 1320 Rate: Rate (enter#) (94) Rhythm: NSR [place]: Normal Intervals: Normal PA QRS: Normal Ischemia: Non specific changes Compare to prior EKG: Unchanged from prior EKG - Labs Labs: Laboratory Tests 09/18/18 09/18/18 13:07 13:30 Sodium 140 Potassium 3.9 Chloride 102 Carbon Dioxide 30 Anion Gap 8.0 BUN 11 Creatinine 0.6 Estimated GFR (MDRD) 140 Glucose 114 H Calcium 6.3 L* Phosphorus 4.5 Magnesium 2.4 Total Bilirubin 0.4 AST 28 ALT 16 Alkaline Phosphatase 91 Total Protein 7.7 Albumin 3.8 Globulin 3.9 Albumin/Globulin Ratio 1.0 Lipase 55 H PD MEDICAL DECISION MAKING - ED course Complexity details: reviewed old records, reviewed results, re-evaluated patient, considered differential, d/w patient, d/w peoplesoft hcm consultant ED course: Patient with recurrent hypocalcemia secondary to Karrie's hereditary osteodystrophy and hyperparathyroidism. Given IV fluids and IV calcium. Will admit for further replacement of her hypocalcemia. Discussed the case with the hospitalist who accepts This document was made in part using voice recognition software. While efforts are made to proofread this document, sound alike and grammatical errors may occur. 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
--- NOTE | 2018-09-18 16:43 | HISTORY & PHYSICAL EXAMINATION ---
Chief Complaint - Chief Complaint Chief Complaint: Muscle spasms with associated palpitations, myalgias History of Present Illness - Admitted From Admitted From:: home - History Obtained From Records Reviewed: yes History obtained from: patient Exam Limitations: none - History of Present Illness HPI Comment/Other: 33-year-old female Camden Hereditary Osteodystrophy, Pseudohypoparathyroidism Type 1A, asthma, hypothyroidism, Hypertension, pre-diabetes and Vitamin D Deficiency who presented. States that she is having muscle spasms and cramping again. Typical of her symptoms when she has hypocalcemia. Recently admitted for same. Patient was recently discharged from hospitalist service on 09/12/18 for asthma exacerbation and hypocalcemia whuich appears to be recurrent. Denies chest pain but did mention some dizziness with palpitation and no QTc seen on wall and floor tiler, She is morbidly obese, with a hidalgo appearance and wide neck circumference, Pickwick[place]- like. She is supposed to be on a CPAP at home but does not have one.As a result of her clinical presentation, she is being admitted for further management, correction of lytes and due to her poor IV vascular access will need a right IJ placement as attempt for peripheral site was unsuccessful. dr Darnell was consulted for a port-a-cath plcmt for tomorrow am. History - Past Medical History Cardiovascular: reports: Hypertension Endocrine/Autoimmune: reports: HyPOthyroidism, Other (Camden hereditary osteodystrophy, Pseudohypoparathyroidism type 1) Musculoskeletal: reports: Fatigue, Other (myalgias ) - Past Surgical History General: reports: Other (hernia repair) - Family & Social History Family History Comment/Other: Maternal Grandmother: valvular heart disease Social History Notes: She recently moved to [place] from [place] to live with her grandmother. She is independent of activities of daily living. She cannot drive. Uses public transportation. Waiting for job placement. Used to work at a [employer] in [place]. - Substance History Use: Uses substance without health or social issues: Cannabis - POLST POLST Status: Full Code Meds/Allgy - Home Medications Home Medications: Ambulatory Orders Medication Instructions Recorded Confirmed Calcitriol [Rocaltrol] 1.5 mcg PO DAILY #180 capsule 09/12/18 09/18/18 Calcium Carbonate [Antacid] 1,000 mg PO BID #300 tab.chew 09/12/18 09/18/18 Cetirizine [ZyrTEC] 10 mg PO DAILY #30 tablet 09/12/18 09/18/18 Cholecalciferol [Vitamin D3] 5,000 unit PO DAILY #30 capsule 09/12/18 09/18/18 Docusate Sodium 100 mg PO BID #60 capsule 09/12/18 09/18/18 Fluticasone/Salmeterol [Advair 1 puffs INH BID #60 blst.w.dev 09/12/18 09/18/18 500-50 Diskus] Levothyroxine Sodium [Synthroid] 175 mcg PO QDAC #30 tablet 09/12/18 09/18/18 Magnesium Oxide 400 mg PO BID #60 tablet 09/12/18 09/18/18 Montelukast [Singulair] 10 mg PO DAILY #30 tablet 09/12/18 09/18/18 Norgestimate-Ethinyl Estradiol 1 tab PO DAILY #30 tablet 09/12/18 09/18/18 [[id number] Tablet] - Allergies Allergies/Adverse Reactions: Allergies Allergy/AdvReac Type Severity Reaction Status Date / Time latex Allergy Anaphylaxis Verified 09/18/18 13:07 Review of Systems - Constitutional Constitutional: reports: Fatigue, Weakness. denies: Fever, Chills, Malaise, Poor appetite, Night sweats - Eyes Eyes: denies: Pain, Irritation, Amaurosis, Field loss, Vision loss - Ears, Nose & Throat Ears, Nose & Throat: denies: Tinnitus, Vertigo, Nosebleeds - Cardiovascular Cariovascular: reports: Palpitations, Edema. denies: Irregular heart rate, Chest pain, Syncope - Respiratory Respiratory: denies: Cough, Sputum production, Wheezing, Hemoptysis - Gastrointestinal Gastrointestinal: denies: Abdominal pain, Abdominal distention, Constipation, Diarrhea, Nausea, Coffee grounds emesis, Reflux/heartburn - Genitourinary Genitourinary: denies: Dysuria, Frequency, Urgency, Hematuria - Musculoskeletal Musculoskeletal: reports: Muscle pain, Back pain, Muscle aches, Muscle weakness. denies: Joint swelling - Integumentary Integumentary: reports: Hair changes. denies: Pruritis, Lesions, Lumps, Pigment changes - Neurological Neurological: denies: Focal weakness, Headache, Dizziness, Numbness, Memory problems, Seizures - Psychiatric Psychiatric: denies: Depression, Anxiety, Suicidal, Delusions - Endocrine Endocrine: denies: Polyuria, Polydypsia, Intolerance to cold, Intolerance to heat - Hematologic/Lymphatic Hematologic/Lymphatic: denies: Anemia, Petechiae, Blood clots, Bleeding tendencies, Recurrent infections - All Other Systems All Other Systems: reports: Reviewed and negative Prior Level of Functionality: Patient is independent with home ADL's Exam - Vital Signs Reviewed Vital Signs: Yes Vital Signs: Vital Signs x48h Temp Pulse Resp BP Pulse Ox 09/18/18 16:01 37.1 C 79 16 129/77 98 09/18/18 13:05 36.9 C 93 20 106/78 97 Vital Signs 09/18/18 09/18/18 13:05 16:01 Temperature 36.9 C 37.1 C Heart Rate 93 79 Respiratory 20 16 Rate Blood Pressure 106/78 129/77 O2 Saturation 97 98 - Physical Exam General Appearance: positive: No acute distress, Alert, Anxious Eyes Bilateral: positive: Normal inspection, PERRL, Conjunctivae nml ENT: positive: Pharynx nml, No signs of dehydration Neck: positive: Nml inspection, Thyroid nml, No JVD, Trachea midline. negative: Thyromegaly, Lymphadenopathy (R), Lymphadenopathy (L), Carotid bruit Respiratory: positive: Chest non-tender, No respiratory distress, Breath sounds nml Cardiovascular: positive: Regular rate & rhythm, No murmur, No gallop. negative: Irregularly irregular, Systolic murmur, Gallop/S4 Peripheral Pulses: positive: 2+ Abdomen: positive: Non-tender, No organomegaly, Nml bowel sounds, No distention. negative: Tenderness Skin: positive: Color nml, No rash, Warm, Other. negative: Cyanosis (Scaly dry skin) Extremities: positive: Non-tender, Full ROM, Nml appearance, Pedal edema, Other (hands with deformities to MCP/DIP/PIP, and with some spasms along with BLLE spasms). negative: Calf tenderness, Joint swelling, Bandar's sign/cords Neurologic/Psychiatric: positive: Oriented x3, CN's nml (2-12), Motor nml, Sensation nml Conclusion/Plan - Problem List (1) Hypocalcemia Conclusion/Plan: Symptomatic hypocalcemia. Corrected calcium was 6.1, obtain phosp and mag levels and correct. Resume rocatrol, calcium carbonate to increase to 2g po Tid and titrate to an ionized calcium>4 with IV calcium gluconate to be administered as soon as peripheral line inserted, por-a-cath to be placed for long-term management of her symptomatic hypocalcemia. Surgery was consulted for this. Prolonged Qtc may be seen on ecg. Telemetry obs. (2) Karrie hereditary osteodystrophy Conclusion/Plan: Hx Camden hereditary osteodystrophy, Pseudohypoparathyroidism type 1. Would resume home meds. Needs por-a-cath, electrolyte repletion. (3) Hypoparathyroidism Conclusion/Plan: Hypocalcemic hypoparathyroidism, resume rocatrol, check phosp level, may need phosphate binders, low phosphate diet, parathyroid level which may be a moving target. Qualifiers: Hypoparathyroidism type: unspecified Qualified Code(s): E20.9 - Hypoparathyroidism, unspecified (4) Hypothyroidism Conclusion/Plan: Resume synthroid. Check TSH level. Qualifiers: Hypothyroidism type: acquired Qualified Code(s): E03.9 - Hypothyroidism, unspecified - Lab Results Lab results reviewed: Yes Elliott Bones: 09/18/18 13:30 Core Measures - Anticipated LOS I expect patient to be DC'd or transferred within 96 hours.: Yes - Issues Hospital Issues and Management Plan: Patient has poor vascular access which we will need to establish a permanent IV access line with a port-a-cath for ongoing IV calcium repletion. - DVT/VTE - Prophylaxis VTE/DVT Device ordered at admit?: No Not Ordered - Medical Reason: Contraindicated (Muscle spasms) VTE/DVT Prophylaxis med ordered at admit?: Yes - Stroke - Rehab Assessment Rehab services assessment to be ordered?: No Not Ordered - Medical Reason: Not indicated - AMI - Statin at Admit Aspirin Prescribed on Admit: No Not Ordered - Medical Reason: Not indicated
[2018-09-18] MEDS ORDERED: ONDANSETRON ODT 4 MG TABLET TL PRN (16:45)
[2018-09-18] MEDS ORDERED: SODIUM CHLORIDE FLUSH 0.9% 10 ML SYRINGE IVP PRN (16:45)
[2018-09-18] MEDS ORDERED: ACETAMINOPHEN 325 MG TABLET PO PRN (16:45)
[2018-09-18] MEDS ORDERED: HYDROcod/ACETAM 10 MG/325 MG TABLET PO PRN (16:45)
[2018-09-18] MEDS ORDERED: ZOLPIDEM 5 MG TABLET PO PRN (16:45)
[2018-09-18] MEDS ORDERED: CALCIUM GLUCONATE 2,000 MG in SODIUM CHLORIDE 0.9% 100ML 100 ML IV PRN (16:49)
[2018-09-18] MEDS ORDERED: CYCLOBENZAPRINE 10 MG TABLET PO PRN (16:54)
[2018-09-18 18:07] LABS: MAGNESIUM 2.4 mg/dL (1.7-2.8); PHOSPHORUS 4.5 mg/dL (2.5-4.6)
--- NOTE | 2018-09-18 19:00 | CONSULTATION NOTE ---
Referring Provider Name of Referring Provider:: Dr. 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 Multiple recent admissions with increasingly difficult venous access. Consultation requested regarding possible port placement. No hx prior clavicular or rib fractures, nor hx central lines per pt. History - Past Medical History Cardiovascular: reports: Hypertension Endocrine/Autoimmune: reports: HyPOthyroidism, Other (Alvo hereditary osteodystrophy, Pseudohypoparathyroidism type 1) Musculoskeletal: reports: Fatigue, Other (myalgias ) MRSA Hx?: No Other Past Medical History: Morbid obesity - Past Surgical History General: reports: Other (hernia repair) - Family & Social History Family History Comment/Other: Maternal Grandmother: valvular heart disease Living arrangement: At home Living Situation: With family Social History Notes: She recently moved to [place] from [place] to live with her grandmother. She is independent of activities of daily living. She cannot drive. Uses public transportation. Waiting for job placement. Used to work at a [employer] in [place]. - Substance History Use: Uses substance without health or social issues: Cannabis - POLST Patient has POLST: No POLST Status: Full Code Meds/Allgy - Home Medications Home Medications: Ambulatory Orders Medication Instructions Recorded Confirmed Calcitriol [Rocaltrol] 1.5 mcg PO DAILY #180 capsule 09/12/18 09/18/18 Calcium Carbonate [Antacid] 1,000 mg PO BID #300 tab.chew 09/12/18 09/18/18 Cetirizine [ZyrTEC] 10 mg PO DAILY #30 tablet 09/12/18 09/18/18 Cholecalciferol [Vitamin D3] 5,000 unit PO DAILY #30 capsule 09/12/18 09/18/18 Docusate Sodium 100 mg PO BID #60 capsule 09/12/18 09/18/18 Fluticasone/Salmeterol [Advair 1 puffs INH BID #60 blst.w.dev 09/12/18 09/18/18 500-50 Diskus] Levothyroxine Sodium [Synthroid] 175 mcg PO QDAC #30 tablet 09/12/18 09/18/18 Magnesium Oxide 400 mg PO BID #60 tablet 09/12/18 09/18/18 Montelukast [Singulair] 10 mg PO DAILY #30 tablet 09/12/18 09/18/18 Norgestimate-Ethinyl Estradiol 1 tab PO DAILY #30 tablet 09/12/18 09/18/18 [[id number]-[id number] Tablet] - Allergies Allergies/Adverse Reactions: Allergies Allergy/AdvReac Type Severity Reaction Status Date / Time latex Allergy Anaphylaxis Verified 09/18/18 13:07 Review of Systems - Hematologic/Lymphatic Hematologic/Lymphatic: denies: Bruising, Blood clots, Bleeding tendencies Exam - Vital Signs Reviewed Vital Signs: Yes Vital Signs: Vital Signs x48h Temp Pulse Pulse Resp BP Pulse Ox 09/18/18 18:24 37.3 C 92 20 98 09/18/18 16:01 37.1 C 79 16 129/77 98 09/18/18 13:05 36.9 C 93 20 106/78 97 - Physical Exam General Appearance: positive: No acute distress, Alert Eyes Bilateral: positive: No scleral icterus Neck: positive: No JVD, Trachea midline, Other (very short and large neck makes palpation of structures difficult). negative: Lymphadenopathy (R), Lymphadenopathy (L) Respiratory: positive: Chest non-tender, No respiratory distress, Breath sounds nml. negative: Wheezes, Rales, Rhonchi Cardiovascular: positive: Regular rate & rhythm, No murmur, No gallop, Other (clavicles palpably normal bilat; marked truncal obesity.) Abdomen: positive: Non-tender, No organomegaly, No distention, Other (obese) Extremities: positive: Pedal edema (mild bilat). negative: Calf tenderness Neurologic/Psychiatric: positive: Oriented x3 Conclusion/Plan - Diagnosis Diagnosis: Unfortunate 33 y female with Karrie's pseudo hypoparathyroidism and hypocalcemia, in need of venous access to facilitate ongoing treatment. - Plan Plan: Placement of a port was discussed including risks of bleeding, infection, malfunction, need for revision or replacement, difficulty with placement due to morbid obesity, etc, and consent obtained. Will schedule for tomorrow. - Lab Results Lab results reviewed: Yes Fish Bones: 09/18/18 13:30
[2018-09-18] MEDS ORDERED: CALCIUM CARBONATE CHEW 500 MG TABLET PO SCH (21:00)
[2018-09-18] MEDS: LACTATED RINGERS 1,000 ML IV SCH (21:05)
[2018-09-18] MEDS: SODIUM CHLORIDE FLUSH 0.9% 10 ML SYRINGE IVP SCH (21:05)
[2018-09-18] MEDS: DOCUSATE SODIUM 100 MG CAPSULE PO SCH (21:30)
[2018-09-18] MEDS: MAGNESIUM OXIDE 400 MG TABLET PO SCH (21:31)
[2018-09-18] MEDS: FAMOTIDINE 20 MG TABLET PO SCH (21:31)
[2018-09-18] MEDS: CALCIUM CARBONATE CHEW 500 MG TABLET PO SCH (21:31)
--- NOTE | 2018-09-18 22:02 | XRAY Report ---
Reason: preop port placement Procedure Date: 09/18/2018 Accession Number: [id number] / [id number] Procedure: XR - Chest 1 View X-Ray CPT Code: 41802 FULL RESULT: EXAM: CHEST RADIOGRAPHY EXAM DATE: 09/18/2018 08:00 PM. CLINICAL HISTORY: Preop port placement. COMPARISON: None. TECHNIQUE: 1 view. FINDINGS: Lungs/Pleura: No focal opacities evident. No pleural effusion. No pneumothorax. Mediastinum: Within exam limitations, the cardiomediastinal contour is normal. Other: None. IMPRESSION: Normal single view chest. RADIA
[2018-09-19] MEDS: BUDESONIDE 0.5 MG/2 ML NEB INH SCH ×4 (00:03→19:39)
[2018-09-19] MEDS: FORMOTEROL FUMARATE NEB 20 MCG/2 ML INH SCH ×4 (00:03→19:39)
[2018-09-19] MEDS: SODIUM CHLORIDE FLUSH 0.9% 10 ML SYRINGE IVP SCH ×3 (00:59→21:57)
[2018-09-19] MEDS: LEVOTHYROXINE 75 MCG TABLET PO SCH (06:16)
[2018-09-19] MEDS: LEVOTHYROXINE 100 MCG TABLET PO SCH (06:16)
[2018-09-19] MEDS: CALCIUM CARBONATE CHEW 500 MG TABLET PO SCH ×3 (06:16→21:48)
[2018-09-19] MEDS: LACTATED RINGERS 1,000 ML IV SCH ×2 (06:17→16:04)
[2018-09-19 06:25] LABS: VBG PH 7.483 (7.31-7.41)
[2018-09-19 06:36] LABS: ALBUMIN 3.3 g/dL (3.2-5.5); CREATININE 0.6 mg/dL (0.4-1.0); PHOSPHORUS 5.2 mg/dL (2.5-4.6)
[2018-09-19 06:37] LABS: CALCIUM 6.5 mg/dL (8.5-10.3)
[2018-09-19] MEDS ORDERED: CALCIUM GLUCONATE 2,000 MG in SODIUM CHLORIDE 0.9% 100ML 100 ML IV PRN (06:59)
[2018-09-19] MEDS ORDERED: CALCIUM GLUCONATE 1000 MG/10 ML VIAL ONE (07:50)
[2018-09-19] MEDS: CHOLECALCIFEROL 5,000 UNIT CAPSULE PO SCH (08:43)
[2018-09-19] MEDS: FAMOTIDINE 20 MG TABLET PO SCH ×2 (08:43→21:48)
[2018-09-19] MEDS: CETIRIZINE 10 MG TABLET PO SCH (08:43)
[2018-09-19] MEDS: MONTELUKAST 10 MG TABLET PO SCH (08:43)
[2018-09-19] MEDS: MAGNESIUM OXIDE 400 MG TABLET PO SCH ×2 (08:43→21:47)
[2018-09-19] MEDS: DOCUSATE SODIUM 100 MG CAPSULE PO SCH ×2 (08:43→21:48)
[2018-09-19] MEDS: NORGESTIMATE ETHINYL ESTRADIOL PO SCH (08:44)
[2018-09-19] MEDS: ENOXAPARIN 40 MG/0.4 ML SYRINGE SUBQ SCH (08:44)
[2018-09-19] MEDS: POLYETHYLENE GLYCOL 3350 17 GM PACKET PO SCH (08:44)
[2018-09-19] MEDS: SEVELAMER 800 MG TABLET PO SCH ×3 (08:45→16:54)
--- NOTE | 2018-09-19 10:25 | PROVIDER PROGRESS NOTE ---
Assessment/Plan - Problem List (1) Hypoparathyroidism Qualifiers: Hypoparathyroidism type: unspecified Qualified Code(s): E20.9 - Hypoparathyroidism, unspecified Assessment/Plan: clinically improving. Plan: Port placement today for anticipated need for ongoing venous access. - Current Meds Current Meds: Current Medications Generic Name Dose Route Start Last Admin Trade Name Freq PRN Reason Stop Dose Admin Budesonide 0.5 mg 09/18/18 19:00 09/19/18 00:03 Pulmicort INH Not Given RTBID GAIL Calcium Carbonate/Glycine 2,000 mg 09/18/18 22:00 09/19/18 06:16 Tums PO 2,000 mg TID GAIL Administration Cetirizine HCl 10 mg 09/19/18 09:00 09/19/18 08:43 Zyrtec PO 10 mg DAILY GAIL Administration Cholecalciferol 5,000 unit 09/19/18 09:00 09/19/18 08:43 Vitamin D3 PO 5,000 unit DAILY GAIL Administration Docusate Sodium 100 mg 09/18/18 21:00 09/19/18 08:43 Colace 100mg Capsule PO 100 mg BID GAIL Administration Enoxaparin Sodium 40 mg 09/19/18 09:00 09/19/18 08:44 Lovenox SUBQ 40 mg DAILY GA[facility] Administration Famotidine 20 mg 09/18/18 21:00 09/19/18 08:43 Pepcid PO 20 mg BID GAIL Administration Formoterol Fumarate 20 mcg 09/18/18 19:00 09/19/18 00:03 Perforomist INH Not Given RTBID GAIL Lactated Ringer's 1,000 mls @ 100 mls/hr 09/18/18 17:00 09/19/18 06:17 Lr IV 100 mls/hr .Q10H GAIL Administration Calcium Gluconate 2,000 mg/ 120 mls @ 480 mls/hr 09/19/18 06:59 09/19/18 09:0 9 Sodium Chloride IV Infused PRN PRN Infusion for corrected calcium <8.0 Levothyroxine Sodium 100 mcg 09/19/18 07:00 09/19/18 06:16 Synthroid PO 100 mcg QDAC GAIL Administration Levothyroxine Sodium 75 mcg 09/19/18 07:00 09/19/18 06:16 Synthroid PO 75 mcg QDAC GAIL Administration Magnesium Oxide 400 mg 09/18/18 21:00 09/19/18 08:43 Mag Ox PO 400 mg BID GAIL Administration Montelukast Sodium 10 mg 09/19/18 09:00 09/19/18 08:43 Singulair PO 10 mg DAILY GAIL Administration Norgestimate-Ethinyl 1 each 09/19/18 09:00 09/19/18 08:44 Estradiol [Tri-Lo- PO Not Given Sprintec Tablet] 1 DAILY GAIL Tab) Polyethylene Glycol 17 gm 09/19/18 09:00 09/19/18 08:44 Miralax PO Not Given DAILY GAIL Sevelamer HCl 800 mg 09/19/18 08:00 09/19/18 08:45 Renagel PO Not Given TIDWM GAIL Sodium Chloride 10 ml 09/18/18 17:00 09/19/18 08:44 Normal Saline Flush 0.9% IVP Not Given 0100,0900,1700 GAIL - Lab Result Lab results reviewed: Yes Fish Bone Diagrams: 09/19/18 06:15 - Diagnostic Imaging Results Diagnostic Imaging Results Comments: CXR: NAD - Additional Planning Condition/Complexity: Improved My Orders: My Active Orders 09/19/18 00:01 NPO except Meds at Midnight [DIET] 09/19/18 12:00 ceFAZolin [Ancef] 3 gm Sodium Chloride 0.9% 100Ml [Normal Saline 0.9% 100Ml] 100 ml IV ONCE Plan Discussed with:: Patient Time Spent: Less than 15 minutes Subjective - Subjective Patient Reports: Resting Comfortably Objective Vital Signs: Vital Signs - 24 hr 09/18/18 09/18/18 09/18/18 13:05 16:01 18:24 Temperature 36.9 C 37.1 C 37.3 C Heart Rate 93 79 Heart Rate [ 92 Radial] Respiratory 20 16 20 Rate Blood Pressure 106/78 129/77 Blood Pressure [Right Brachial artery] O2 Saturation 97 98 98 09/18/18 09/19/18 09/19/18 20:47 00:00 04:31 Temperature 37.1 C 36.6 C 36.7 C Heart Rate Heart Rate [ 90 70 73 Radial] Respiratory 20 20 20 Rate Blood Pressure Blood Pressure 134/65 H 136/73 H 107/71 [Right Brachial artery] O2 Saturation 97 96 95 09/19/18 07:30 Temperature 36.7 C Heart Rate Heart Rate [ 70 Radial] Respiratory 22 Rate Blood Pressure Blood Pressure 132/88 H [Right Brachial artery] O2 Saturation 97 Oxygen O2 Source Room air I&O (Last 24 Hrs): Intake and Output Totals x24h 09/17/18 09/18/18 09/19/18 23:59 23:59 23:59 Intake Total 240 1040 Balance 240 1040 Respiratory: Chest non-tender, No respiratory distress - Results Results: Laboratory Results VBG pH 7.483 (7.31-7.41) H 09/19/18 06:15 Ionized Calcium 0.77 mmol/L (1.15-1.33) L* 09/19/18 06:15 Sodium 140 mmol/L (135-145) 09/19/18 06:15 Potassium 4.0 mmol/L (3.5-5.0) 09/19/18 06:15 Chloride 100 mmol/L (101-111) L 09/19/18 06:15 Carbon Dioxide 31 mmol/L (21-32) 09/19/18 06:15 Anion Gap 9.0 (6-13) 09/19/18 06:15 BUN 11 mg/dL (6-20) 09/19/18 06:15 Creatinine 0.6 mg/dL (0.4-1.0) 09/19/18 06:15 Estimated GFR (MDRD) 140 (>89) 09/19/18 06:15 Glucose 91 mg/dL (70-100) 09/19/18 06:15 Calcium 6.5 mg/dL (8.5-10.3) L* 09/19/18 06:15 Phosphorus 5.2 mg/dL (2.5-4.6) H 09/19/18 06:15 Magnesium 2.4 mg/dL (1.7-2.8) 09/18/18 13:07 Total Bilirubin 0.4 mg/dL (0.2-1.0) 09/18/18 13:30 AST 28 IU/L (10-42) 09/18/18 13:30 ALT 16 IU/L (10-60) 09/18/18 13:30 Alkaline Phosphatase 91 IU/L (42-121) 09/18/18 13:30 Total Protein 7.7 g/dL (6.7-8.2) 09/18/18 13:30 Albumin 3.3 g/dL (3.2-5.5) 09/19/18 06:15 Globulin 3.9 g/dL (2.1-4.2) 09/18/18 13:30 Albumin/Globulin Ratio 1.0 (1.0-2.2) 09/18/18 13:30 Lipase 55 U/L (22-51) H 09/18/18 13:30 ABX Reporting Has patient been on IV antibiotics over the past 48 hours?: No
[2018-09-19] MEDS: CALCITRIOL 0.25 MCG CAPSULE PO SCH (11:19)
[2018-09-19] MEDS ORDERED: ceFAZolin 3 GM in SODIUM CHLORIDE 0.9% 100ML 100 ML IV ONE (12:00)
[2018-09-19] MEDS ORDERED: ceFAZolin 1 GM VIAL ONE (13:35)
[2018-09-19] MEDS ORDERED: LIDOCAINE 1% 50 ML MDV ONE (13:35)
--- NOTE | 2018-09-19 14:00 | ANESTHESIA ---
Pre-Anesthesia VS, & Labs - Diagnosis Diagnosis Unfortunate 33 y female with Dexter's pseudo hypoparathyroidism and hypocalcemia, in need of venous access to facilitate ongoing treatment. - Procedure Port placement Vital Signs: Temp Pulse Resp BP Pulse Ox 36.7 C 75 20 120/88 H 97 09/19/18 11:52 09/19/18 11:52 09/19/18 11:52 09/19/18 11:52 09/19/18 11:52 Height 5 ft 3 in Weight (kg) 133 kg Body Mass Index 51.9 - NPO >8 hours - Is Patient ?: Waiver signed - Lab Results Current Lab Results: Laboratory Tests 09/19/18 06:15: VBG pH 7.483 H, Ionized Calcium 0.77 L* 09/19/18 06:15: Sodium 140, Potassium 4.0, Chloride 100 L, Carbon Dioxide 31, Anion Gap 9.0, BUN 11, Creatinine 0.6, Estimated GFR (MDRD) 140, Glucose 91, Calcium 6.5 L*, Phosphorus 5.2 H, Albumin 3.3 09/18/18 13:30: Sodium 140, Potassium 3.9, Chloride 102, Carbon Dioxide 30, Anion Gap 8.0, BUN 11, Creatinine 0.6, Estimated GFR (MDRD) 140, Glucose 114 H, Calcium 6.3 L*, Total Bilirubin 0.4, AST 28, ALT 16, Alkaline Phosphatase 91, Total Protein 7.7, Albumin 3.8, Globulin 3.9, Albumin/Globulin Ratio 1.0, Lipase 55 H 09/18/18 13:07: Phosphorus 4.5, Magnesium 2.4 Lab results reviewed: Yes Fish Bones: 09/19/18 06:15 Home Medications and Allergies Active Medications Acetaminophen (Tylenol) 650 mg PO Q4HR PRN PRN Reason: Pain 1 to 4 Hydrocodone Bitart/Acetaminophen (Levels 10 Mg/325 Mg) 1 tab PO Q4HR PRN PRN Reason: Pain 8 to 10 Budesonide (Pulmicort) 0.5 mg INH RTBID [facility] Last Admin: 09/19/18 13:22 Dose: Not Given Calcitriol (Rocaltrol) 1.5 mcg PO DAILY [facility] Last Admin: 09/19/18 11:19 Dose: 1.5 mcg Calcium Carbonate/Glycine (Tums) 2,000 mg PO TID [facility] Last Admin: 09/19/18 06:16 Dose: 2,000 mg Cetirizine HCl (Zyrtec) 10 mg PO DAILY [facility] Last Admin: 09/19/18 08:43 Dose: 10 mg Cholecalciferol (Vitamin D3) 5,000 unit PO DAILY [facility] Last Admin: 09/19/18 08:43 Dose: 5,000 unit Cyclobenzaprine HCl (Flexeril) 10 mg PO TID PRN PRN Reason: muscle spasms Docusate Sodium (Colace 100mg Capsule) 100 mg PO BID [facility] Last Admin: 09/19/18 08:43 Dose: 100 mg Enoxaparin Sodium (Lovenox) 40 mg SUBQ DAILY [facility] Last Admin: 09/19/18 08:44 Dose: 40 mg Famotidine (Pepcid) 20 mg PO BID [facility] Last Admin: 09/19/18 08:43 Dose: 20 mg Formoterol Fumarate (Perforomist) 20 mcg INH RTBID [facility] Last Admin: 09/19/18 13:22 Dose: Not Given Lactated Ringer's (Lr) 1,000 mls @ 100 mls/hr IV .Q10H [facility] Last Admin: 09/19/18 06:17 Dose: 100 mls/hr Calcium Gluconate 2,000 mg/ (Sodium Chloride) 120 mls @ 480 mls/hr IV PRN PRN PRN Reason: for corrected calcium <8.0 Last Infusion: 09/19/18 09:09 Dose: Infused Levothyroxine Sodium (Synthroid) 100 mcg PO QDAC [facility] Last Admin: 09/19/18 06:16 Dose: 100 mcg Levothyroxine Sodium (Synthroid) 75 mcg PO QDAC [facility] Last Admin: 09/19/18 06:16 Dose: 75 mcg Magnesium Oxide (Mag Ox) 400 mg PO BID [facility] Last Admin: 09/19/18 08:43 Dose: 400 mg Montelukast Sodium (Singulair) 10 mg PO DAILY [facility] Last Admin: 09/19/18 08:43 Dose: 10 mg Ondansetron HCl (Zofran Odt) 4 mg TL Q6HR PRN PRN Reason: Nausea / Vomiting Norgestimate-Ethinyl Estradiol [Tri-Lo- Sprintec Tablet] 1 Tab) 1 each PO DAILY [facility] Last Admin: 09/19/18 08:44 Dose: Not Given Polyethylene Glycol (Miralax) 17 gm PO DAILY [facility] Last Admin: 09/19/18 08:44 Dose: Not Given Sevelamer HCl (Renagel) 800 mg PO TIDWM [facility] Last Admin: 09/19/18 13:18 Dose: Not Given Sodium Chloride (Normal Saline Flush 0.9%) 10 ml IVP PRN PRN PRN Reason: NEEDED PER PROVIDER ORDERS Sodium Chloride (Normal Saline Flush 0.9%) 10 ml IVP 0100,0900,1700 [facility] Last Admin: 09/19/18 08:44 Dose: Not Given Zolpidem Tartrate (Ambien) 5 mg PO QPM PRN PRN Reason: Insomnia Allergies/Adverse Reactions: Allergies Allergy/AdvReac Type Severity Reaction Status Date / Time latex Allergy Anaphylaxis Verified 09/18/18 13:07 Anes History & Medical History - Anesthetic History Anesthesia Complications: reports: No previous complications Family history of Anesthesia Complications: Denies Family history of Malignant Hyperthermia: Denies - Medical History Cardiovascular: reports: Hypertension Musculoskeletal: reports: Fatigue, Other Endocrine/Autoimmune: reports: HyPOthyroidism, Other (Dexter hereditary osteodystrophy, Pseudohypoparathyroidism type 1) Smoking Status: Never smoker Other Past Medical History: Morbid obesity - Surgical History General: Other (hernia repair) Exam General: Alert, Oriented x3, Cooperative Dental: WNL Mouth Openin Fingerbreadth Mallampati classification: III Thyromental Distance: 4-6 cm Respiratory: Lungs clear, Normal breath sounds, Decreased breath sounds Cardiovascular: Regular rate Mental/Cognitive Status: Alert/Oriented X3, Normal for patient Cognitive Status: Within normal limits Plan Anesthesia Type: MAC Consent for Procedure(s) Verified and Reviewed: Yes Code Status: Attempt Resuscitation ASA classification: 3-Severe systemic disease Is this case an emergency?: No
--- NOTE | 2018-09-19 14:56 | PROVIDER PROGRESS NOTE ---
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) Current Medications - Current Medications Current Medications: Active Medications Acetaminophen (Tylenol) 650 mg PO Q4HR PRN PRN Reason: Pain 1 to 4 Hydrocodone Bitart/Acetaminophen ([place] 10 Mg/325 Mg) 1 tab PO Q4HR PRN PRN Reason: Pain 8 to 10 Budesonide (Pulmicort) 0.5 mg INH RTBID [facility] Last Admin: 09/19/18 13:22 Dose: Not Given Calcitriol (Rocaltrol) 1.5 mcg PO DAILY [facility] Last Admin: 09/19/18 11:19 Dose: 1.5 mcg Calcium Carbonate/Glycine (Tums) 2,000 mg PO TID [facility] Last Admin: 09/19/18 14:17 Dose: 2,000 mg Cetirizine HCl (Zyrtec) 10 mg PO DAILY [facility] Last Admin: 09/19/18 08:43 Dose: 10 mg Cholecalciferol (Vitamin D3) 5,000 unit PO DAILY [facility] Last Admin: 09/19/18 08:43 Dose: 5,000 unit Cyclobenzaprine HCl (Flexeril) 10 mg PO TID PRN PRN Reason: muscle spasms Docusate Sodium (Colace 100mg Capsule) 100 mg PO BID [facility] Last Admin: 09/19/18 08:43 Dose: 100 mg Enoxaparin Sodium (Lovenox) 40 mg SUBQ DAILY [facility] Last Admin: 09/19/18 08:44 Dose: 40 mg Famotidine (Pepcid) 20 mg PO BID [facility] Last Admin: 09/19/18 08:43 Dose: 20 mg Formoterol Fumarate (Perforomist) 20 mcg INH RTBID [facility] Last Admin: 09/19/18 13:22 Dose: Not Given Lactated Ringer's (Lr) 1,000 mls @ 100 mls/hr IV .Q10H [facility] Last Admin: 09/19/18 06:17 Dose: 100 mls/hr Calcium Gluconate 2,000 mg/ (Sodium Chloride) 120 mls @ 480 mls/hr IV PRN PRN PRN Reason: for corrected calcium <8.0 Last Infusion: 09/19/18 09:09 Dose: Infused Levothyroxine Sodium (Synthroid) 100 mcg PO QDAC [facility] Last Admin: 09/19/18 06:16 Dose: 100 mcg Levothyroxine Sodium (Synthroid) 75 mcg PO QDAC [facility] Last Admin: 09/19/18 06:16 Dose: 75 mcg Magnesium Oxide (Mag Ox) 400 mg PO BID [facility] Last Admin: 09/19/18 08:43 Dose: 400 mg Montelukast Sodium (Singulair) 10 mg PO DAILY [facility] Last Admin: 09/19/18 08:43 Dose: 10 mg Ondansetron HCl (Zofran Odt) 4 mg TL Q6HR PRN PRN Reason: Nausea / Vomiting Norgestimate-Ethinyl Estradiol [Tri-Lo- Sprintec Tablet] 1 Tab) 1 each PO DAILY [facility] Last Admin: 09/19/18 08:44 Dose: Not Given Polyethylene Glycol (Miralax) 17 gm PO DAILY [facility] Last Admin: 09/19/18 08:44 Dose: Not Given Sevelamer HCl (Renagel) 800 mg PO TIDWM [facility] Last Admin: 09/19/18 13:18 Dose: Not Given Sodium Chloride (Normal Saline Flush 0.9%) 10 ml IVP PRN PRN PRN Reason: NEEDED PER PROVIDER ORDERS Sodium Chloride (Normal Saline Flush 0.9%) 10 ml IVP 0100,0900,1700 [facility] Last Admin: 09/19/18 08:44 Dose: Not Given Zolpidem Tartrate (Ambien) 5 mg PO QPM PRN PRN Reason: Insomnia Objective - Vital Signs/Intake & Output Reviewed Vital Signs: Yes Vital Signs: Vital Signs x48h Temp Pulse Pulse Resp BP Pulse Ox 09/19/18 11:52 36.7 C 75 20 120/88 H 97 09/19/18 07:45 75 18 09/19/18 07:30 36.7 C 70 22 132/88 H 97 Intake & Output: Intake & Output 09/16/18 09/17/18 09/18/18 09/19/18 23:59 23:59 23:59 23:59 Intake Total 240 1290 Balance 240 1290 - Objective General Appearance: positive: No acute distress, Alert, Other (Has a pickiwinian-appearance) Eyes Bilateral: positive: Normal inspection, PERRL, EOMI, Conjunctivae nml ENT: negative: Dry mucous membranes Neck: positive: Nml inspection, Thyroid nml, No JVD, Trachea midline, Other (short based neck). negative: Thyromegaly Cardiovascular: positive: Regular rate & rhythm, No murmur, No gallop. negative: Irregularly irregular Peripheral Pulses: 1+ Popliteal (R), 1+ Popliteal (L) Abdomen: positive: Non-tender, No organomegaly, Nml bowel sounds, No distention Back: positive: Nml inspection Skin: positive: Color nml, No rash, Warm Extremities: positive: Non-tender, Full ROM, Nml appearance, No pedal edema. negative: Pedal edema, Joint swelling Neurologic/Psychiatric: positive: Oriented x3, CN's nml (2-12), Motor nml, Sensation nml - Lab Results Fish Bones: 09/19/18 06:15 Other Labs: Lab Results x24hrs 09/19/18 09/19/18 09/18/18 Range/Units 06:15 06:15 13:07 VBG pH 7.483 H (7.31-7.41) Ionized Calcium 0.77 L* (1.15-1.33) mmol/L Sodium 140 (135-145) mmol/L Potassium 4.0 (3.5-5.0) mmol/L Chloride 100 L (101-111) mmol/L Carbon Dioxide 31 (21-32) mmol/L Anion Gap 9.0 (6-13) BUN 11 (6-20) mg/dL Creatinine 0.6 (0.4-1.0) mg/dL Estimated GFR (MDRD) 140 (>89) Glucose 91 (70-100) mg/dL Calcium 6.5 L* (8.5-10.3) mg/dL Phosphorus 5.2 H 4.5 (2.5-4.6) mg/dL Magnesium 2.4 (1.7-2.8) mg/dL Albumin 3.3 (3.2-5.5) g/dL ABX Reporting Has patient been on IV antibiotics over the past 48 hours?: No Assessment/Plan - Problem List (1) Hypocalcemia Impression: Corrected calcium 6.7 (6.1) today with minimal carpopedal spasms having numbness to hands and feet. Continue with rocatrol, calcium carbonate was increase to 2g po TID to titrate to an ionized calcium>4 with IV calcium gluconate to be administered as soon as peripheral line inserted, unable to insert por-a-cath as she would need anesthesia high risk intubation due to short wide based neck and malampatti stage. PICC ordered for long-term management of her symptomatic hypocalcemia. Anesthesia will insert PICC line. No prolonged QTc on tele. (2) [place] hereditary osteodystrophy Impression: Hx Karrie hereditary osteodystrophy, Pseudohypoparathyroidism type 1. PICC line for long-term management of electrolyte d/o especially with recurrent symptomatic hypocalcemia,increase calcium carbonate. (3) Hypoparathyroidism Impression: Hypocalcemic hypoparathyroidism, resume rocatrol, check PTH level. Qualifiers: Hypoparathyroidism type: unspecified Qualified Code(s): E20.9 - Hypoparathyroidism, unspecified (4) Hypothyroidism Impression: Resume synthroid. Check TSH. 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 (6) Hyperphosphatemia Impression: Renvela 800 mg PO TID for phosphate binding, low phosp diet.
--- NOTE | 2018-09-19 15:43 | XRAY Report ---
Reason: picc line verification Procedure Date: 09/19/2018 Accession Number: [id number] / [id number] Procedure: XR - Chest for Line Placement CPT Code: FULL RESULT: EXAM: CHEST RADIOGRAPHY EXAM DATE: 09/19/2018 03:22 PM. CLINICAL HISTORY: PICC line placement. COMPARISON: CHEST 1 VIEW 09/18/2018 7:59 PM. TECHNIQUE: 1 view. FINDINGS: Lungs/Pleura: No focal opacities evident. No pleural effusion. No pneumothorax. Mediastinum: Within exam limitations, the cardiomediastinal contour is normal. Other: There has been placement of a right-sided PICC line. The tip underlies the mid proximal clavicle in the expected location of the junction of subclavian and axillary veins. IMPRESSION: Right PICC line tip at the level of right mid clavicle, near the expected location of subclavian and axillary vein junction. [facility]
[2018-09-19] MEDS: INSULIN ASPART 300 UNIT/3 ML PEN SUBQ SCH ×2 (16:54→21:56)
[2018-09-19 18:32] LABS: HB2 TOTAL 13.7 g/dL; HEMOGLOBIN A1C 0.37 g/dL; HEMOGLOBIN A1C % 4.6 % (4.6-6.2)
[2018-09-20] MEDS: SODIUM CHLORIDE FLUSH 0.9% 10 ML SYRINGE IVP SCH ×2 (00:36→08:45)
[2018-09-20] MEDS: LACTATED RINGERS 1,000 ML IV SCH (01:40)
[2018-09-20] MEDS: CALCIUM CARBONATE CHEW 500 MG TABLET PO SCH ×2 (06:22→13:07)
[2018-09-20 06:37] LABS: BASOPHILS % (AUTO) 0.9 %; EOSINOPHILS # (AUTO) 0.1 10^3/uL (0.0-0.7); EOSINOPHILS % (AUTO) 2.2 %; HGB - HEMOGLOBIN 12.8 g/dL (12.0-16.0); LYMPHOCYTES # (AUTO) 1.2 10^3/uL (1.5-3.5); MEAN CORPUSCULAR HEMOGLOBIN 29.2 pg (27.0-31.0); MEAN CORPUSCULAR HGB CONC 33.3 g/dL (32.0-36.0); MEAN CORPUSCULAR VOLUME 87.7 fL (81.0-99.0); MEAN PLATELET VOLUME 7.8 fL (7.9-10.8); MONOCYTES # (AUTO) 0.4 10^3/uL (0.0-1.0); MONOCYTES % (AUTO) 9.3 %; NEUTROPHILS # (AUTO) 2.8 10^3/uL (1.5-6.6); NEUTROPHILS % (AUTO) 60.6 %; PLT - PLATELET COUNT 208 10^3/uL (130-450); RED BLOOD COUNT 4.39 10^6/uL (4.20-5.40); RED CELL DISTRIBUTION WIDTH 13.8 % (12.0-15.0); WHITE BLOOD COUNT 4.5 x10^3/uL (4.8-10.8)
[2018-09-20 06:50] LABS: ALBUMIN 3.2 g/dL (3.2-5.5); CALCIUM 7.5 mg/dL (8.5-10.3); CREATININE 0.7 mg/dL (0.4-1.0); PHOSPHORUS 4.4 mg/dL (2.5-4.6)
[2018-09-20 06:55] LABS: CALCIUM 7.6 mg/dL (8.5-10.3)
[2018-09-20 06:56] LABS: VBG PH 7.401 (7.31-7.41)
[2018-09-20] MEDS: FORMOTEROL FUMARATE NEB 20 MCG/2 ML INH SCH (07:12)
[2018-09-20] MEDS: BUDESONIDE 0.5 MG/2 ML NEB INH SCH (07:12)
[2018-09-20] MEDS: LEVOTHYROXINE 75 MCG TABLET PO SCH (07:29)
[2018-09-20] MEDS: LEVOTHYROXINE 100 MCG TABLET PO SCH (07:29)
[2018-09-20] MEDS: DOCUSATE SODIUM 100 MG CAPSULE PO SCH (08:44)
[2018-09-20] MEDS: CALCITRIOL 0.25 MCG CAPSULE PO SCH (08:44)
[2018-09-20] MEDS: CHOLECALCIFEROL 5,000 UNIT CAPSULE PO SCH (08:44)
[2018-09-20] MEDS: MONTELUKAST 10 MG TABLET PO SCH (08:44)
[2018-09-20] MEDS: SEVELAMER 800 MG TABLET PO SCH ×2 (08:44→13:07)
[2018-09-20] MEDS: FAMOTIDINE 20 MG TABLET PO SCH (08:44)
[2018-09-20] MEDS: NORGESTIMATE ETHINYL ESTRADIOL PO SCH (08:45)
[2018-09-20] MEDS: POLYETHYLENE GLYCOL 3350 17 GM PACKET PO SCH (08:45)
[2018-09-20] MEDS: MAGNESIUM OXIDE 400 MG TABLET PO SCH (08:45)
[2018-09-20] MEDS: ENOXAPARIN 40 MG/0.4 ML SYRINGE SUBQ SCH (08:45)
[2018-09-20] MEDS: CETIRIZINE 10 MG TABLET PO SCH (08:45)
[2018-09-20] MEDS ORDERED: CALCIUM GLUCONATE 2,000 MG in SODIUM CHLORIDE 0.9% 100ML 100 ML IV SCH (09:00)
[2018-09-20] MEDS: INSULIN ASPART 300 UNIT/3 ML PEN SUBQ SCH ×2 (09:39→12:49)
--- NOTE | 2018-09-20 11:27 | Discharge Plan ---
Discharge Plan Disposition: Home, Self Care Condition: Good Prescriptions: Calcium Carbonate [Tums (Calcium Carbonate 500mg)] 1,000 mg PO BID #120 tablet Cyclobenzaprine [Flexeril] 10 mg PO TID PRN #90 tablet PRN Reason: muscle spasms Gabapentin [Neurontin] 100 mg PO TID #90 capsule Diet: Diabetic Activity Restrictions: Activity as Tolerated Shower Restrictions: No Driving Restrictions: Yes Weight Bearing: Full Weight Instruction Topics: Calcium Carbonate capsules and tablets, Cyclobenzaprine tablets, Gabapentin capsules or tablets, Parathyroid Hormone, Hyperglycemia, Diabetes Resources, Blood Sugar Check, Diabetes Healthy Meals, Diabetes Carbs, Neuropathy Peripheral, ED Hypocalcemia Additional Instructions or Follow Up instructions: Will have pt follow up with PCP for further care or return if pt worsens. Pt comfortable with plan. Rx a glucometer machine with strips, lancets and etoh swabs. No Smoking: If you smoke, Please STOP! Call for help. Follow-up with: Provider,Other [Physician No Access] - (Follow up with scheduled PCP in 10/08/18)
--- NOTE | 2018-09-20 11:37 | DISCHARGE SUMMARY ---
"Discharge Summary Admit Date: 09/18/18 Discharge Date: 09/20/18 Discharging Provider: Dr. Eng Primary Care Provider: Unknown Code Status: Attempt Resuscitation Condition at Discharge: Good Discharge Disposition: 01 Home, Self Care - DIAGNOSES Admission Diagnoses: (1) Hypocalcemia (2) Kar[place] hereditary osteodystrophy (3) Hypoparathyroidism (4) Hypothyroidism Discharge Diagnoses with Status of Each Condition: (1) Hypocalcemia Impression: Corrected calcium 6.7 (6.1) today with minimal carpopedal spasms having numbness to hands and feet. Continue with rocatrol, calcium carbonate was increase to 2g po TID to titrate to an ionized calcium>4 with IV calcium gluconate to be administered as soon as peripheral line inserted, unable to insert por-a-cath as she would need anesthesia high risk intubation due to short wide based neck and malampatti stage. PICC ordered for long-term management of her symptomatic hypocalcemia. Anesthesia will insert PICC line. No prolonged QTc on tele. (2) Karrie hereditary osteodystrophy Impression: Hx [place] hereditary osteodystrophy, Pseudohypoparathyroidism type 1. PICC line for long-term management of electrolyte d/o especially with recurrent symptomatic hypocalcemia,increase calcium carbonate. (3) Hypoparathyroidism Impression: Hypocalcemic hypoparathyroidism, resume rocatrol, check PTH level. Qualifiers: Hypoparathyroidism type: unspecified Qualified Code(s): E20.9 - Hypoparathyroidism, unspecified (4) Hypothyroidism Impression: Resume synthroid. Check TSH. 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 (6) Hyperphosphatemia Impression: Renvela 800 mg PO TID for phosphate binding, low phosp diet. - HPI History of Present Illness: 33-year-old female [place] Hereditary Osteodystrophy, Pseudohypoparathyroidism Type 1A, asthma, hypothyroidism, Hypertension, pre-diabetes and Vitamin D Deficiency who presented. States that she is having muscle spasms and cramping again. Typical of her symptoms when she has hypocalcemia. Recently admitted for same. Patient was recently discharged from hospitalist service on 09/12/18 for asthma exacerbation and hypocalcemia whuich appears to be recurrent. Denies chest pain but did mention some dizziness with palpitation and no QTc seen on cardiac monitor technician, She is morbidly obese, with a hidalgo appearance and wide neck circumference, Pickwickian- like. She is supposed to be on a CPAP at home but does not have one.As a result of her clinical presentation, she is being admitted for further management, correction of lytes and due to her poor IV vascular access will need a right IJ placement as attempt for peripheral site was unsuccessful. dr Darnell was consulted for a port-a-cath plcmt for tomorrow am. - CONSULTS | PROCEDURES Consultations: Dr. Jay Darnell Procedures: PICC liine plcmt on 09/19/18 - HOSPITAL COURSE Hospital Course: Patient was admitted for symptomatic hypocalcemia as it relates to her Hx [place] hereditary osteodystrophy, Pseudohypoparathyroidism type 1. Corrected calcium 7.8 (6.1 on admit) today with minimal carpopedal spasms having numbness to hands and feet which is related to her NIDDM neuropathy, being treated with flexeril and to start on neurontin having gait issues due to numbness of soles of feet. NIDDM is diet controlled was placed on diabetic diet and correctional bolus glycemic coverage. Patient was continued on rocatrol, calcium carbonate was increase to 2g po TID to titrate to an ionized calcium>4 with IV calcium gluconate to be administered daily via PICC line. Patient's hypothyroidism was managed with continued synthroid use. TSh was normal. No prolonged QTc on tele. Patient was placed on low-phosphorus diet and given Renvela 800 mg PO TID for phosphate binding. Patient to had peripheral neuropathy induced gait disturbance see with PT and will continue neurontin as outpatient and DM-2 management as outpatient. - ALLERGIES Allergies/Adverse Reactions: Allergies Allergy/AdvReac Type Severity Reaction Status Date / Time latex Allergy Anaphylaxis Verified 09/18/18 13:07 - MEDICATIONS Home Medications: Ambulatory Orders Medication Instructions Recorded Confirmed Calcitriol [Rocaltrol] 1.5 mcg PO DAILY #180 capsule 09/12/18 09/18/18 Cetirizine [ZyrTEC] 10 mg PO DAILY #30 tablet 09/12/18 09/18/18 Cholecalciferol [Vitamin D3] 5,000 unit PO DAILY #30 capsule 09/12/18 09/18/18 Docusate Sodium 100 mg PO BID #60 capsule 09/12/18 09/18/18 Fluticasone/Salmeterol [Advair 1 puffs INH BID #60 blst.w.dev 09/12/18 09/18/18 500-50 Diskus] Levothyroxine Sodium [Synthroid] 175 mcg PO QDAC #30 tablet 09/12/18 09/18/18 Magnesium Oxide 400 mg PO BID #60 tablet 09/12/18 09/18/18 Montelukast [Singulair] 10 mg PO DAILY #30 tablet 09/12/18 09/18/18 Norgestimate-Ethinyl Estradiol 1 tab PO DAILY #30 tablet 09/12/18 09/18/18 [[id number] Tablet] Calcium Carbonate [Tums (Calcium 1,000 mg PO BID #120 tablet 09/20/18 Carbonate 500mg)] Cyclobenzaprine [Flexeril] 10 mg PO TID PRN #90 tablet 09/20/18 Gabapentin [Neurontin] 100 mg PO TID #90 capsule 09/20/18 - PHYSICAL EXAM AT DISCHARGE General Appearance: positive: No acute distress, Alert, Other (morbidly obese ) Eyes Bilateral: positive: Normal inspection, PERRL, EOMI ENT: positive: ENT inspection nml, Pharynx nml, No signs of dehydration Neck: positive: Nml inspection, Thyroid nml, No JVD, Trachea midline. negative: Thyromegaly Respiratory: positive: Chest non-tender, No respiratory distress, Breath sounds nml Cardiovascular: positive: Regular rate & rhythm, No murmur, No gallop. negative: Irregularly irregular Peripheral Pulses: positive: 2+ Abdomen: positive: Non-tender, No organomegaly, Nml bowel sounds, No distention. negative: Tenderness Back: positive: Nml inspection Skin: positive: Color nml, No rash, Warm Extremities: positive: Non-tender, Full ROM, Nml appearance Neurologic/Psychiatric: positive: Oriented x3, CN's nml (2-12), Sensory loss (mild 2pt discrimination to soles of feet and to light touch ) Babinski Reflex: Right: Absent, Left: Absent - LABS Result Diagrams: 09/20/18 06:22 09/20/18 06:22 - FOLLOW UP Follow Up: PCP in 1-2 weeks - TIME SPENT Time Spent in Discharge (Minutes): 35"
[2018-09-20] MEDS ORDERED: GABAPENTIN 100 MG CAPSULE PO SCH (14:00)
[2018-09-20 15:59] VITALS: BP 135/103
== END 2018-09-20 16:10 | disposition home or self-care (01) ==
LOC: ED 13:00 → MS2 16:45
PROVIDERS: ADMIT Family Medicine; ATTEND Family Medicine
DX: E83.51 Hypocalcemia (principal); Q78.1 Polyostotic fibrous dysplasia; E03.9 Hypothyroidism, unspecified; E66.01 Morbid (severe) obesity due to excess calories; Z68.43 Body mass index [BMI] 50.0-59.9, adult; R07.1 Chest pain on breathing; E83.39 Other disorders of phosphorus metabolism; E11.42 Type 2 diabetes mellitus with diabetic polyneuropathy; I10 Essential (primary) hypertension; J45.909 Unspecified asthma, uncomplicated
CPT/HCPCS: 36415; 36569; 71045; 80053; 80069; 82310; 82330; 83036; 83519; 83690; 83735; 84100; 84443; 85025; 93005; 94640; 96365; 96366; 96372; 96376; 97162; 99283; 99284; A9270; C1751; G0378; J1650; J7120; J7626

== ENCOUNTER 2018-09-22 14:55 | Outpatient (CLI) | payer MEDICAID | END 2018-09-22 14:56 | disposition critical access hospital (66) | LOC: EMS 14:55 | PROVIDERS: ATTEND Surgery | DX: R07.9 Chest pain, unspecified (principal); M25.511 Pain in right shoulder | CPT/HCPCS: A0425; A0429; A0999 ==

== ENCOUNTER 2018-09-22 15:22 | Emergency (ER) | payer MEDICAID ==
[2018-09-22] MEDS ORDERED: IOVERSOL 320 100 ML VIAL IVP ONE ×2 (15:23→16:24)
--- NOTE | 2018-09-22 15:36 | ED Physician Documentation ---
PD HPI CHEST PAIN - Stated complaint Stated Complaint: CP - Chief complaint Chief Complaint: Cardiac - History obtained from History obtained from: Patient PD PAST MEDICAL HISTORY - Past Medical History Cardiovascular: Hypertension Endocrine/Autoimmune: HyPOthyroidism, Other Musculoskeletal: Fatigue, Chronic back pain, Other - Past Surgical History General: Other - Present Medications Home Medications: Ambulatory Orders Medication Instructions Recorded Confirmed Calcitriol [Rocaltrol] 1.5 mcg PO DAILY #180 capsule 09/12/18 09/18/18 Cetirizine [ZyrTEC] 10 mg PO DAILY #30 tablet 09/12/18 09/18/18 Cholecalciferol [Vitamin D3] 5,000 unit PO DAILY #30 capsule 09/12/18 09/18/18 Docusate Sodium 100 mg PO BID #60 capsule 09/12/18 09/18/18 Fluticasone/Salmeterol [Advair 1 puffs INH BID #60 blst.w.dev 09/12/18 09/18/18 500-50 Diskus] Levothyroxine Sodium [Synthroid] 175 mcg PO QDAC #30 tablet 09/12/18 09/18/18 Magnesium Oxide 400 mg PO BID #60 tablet 09/12/18 09/18/18 Montelukast [Singulair] 10 mg PO DAILY #30 tablet 09/12/18 09/18/18 Norgestimate-Ethinyl Estradiol 1 tab PO DAILY #30 tablet 09/12/18 09/18/18 [Vpi-Xh-Woephwir Tablet] Calcium Carbonate [Tums (Calcium 1,000 mg PO BID #120 tablet 09/20/18 Carbonate 500mg)] Cyclobenzaprine [Flexeril] 10 mg PO TID PRN #90 tablet 09/20/18 Gabapentin [Neurontin] 100 mg PO TID #90 capsule 09/20/18 - Allergies Allergies/Adverse Reactions: Allergies Allergy/AdvReac Type Severity Reaction Status Date / Time latex Allergy Anaphylaxis Verified 09/18/18 13:07 - Social History Does the pt smoke?: No Smoking Status: Never smoker Does the pt drink ETOH?: No Does the pt have substance abuse?: No - Immunizations Immunizations are current?: Yes - POLST Patient has POLST: No POLST Status: Full Code Results - Vitals Vitals: Vital Signs - 24 hr 09/22/18 15:23 Temperature 36.1 C L Heart Rate 80 Respiratory 18 Rate Blood Pressure 133/92 H O2 Saturation 100 Oxygen O2 Source Room air
--- NOTE | 2018-09-22 15:41 | ED Physician Documentation ---
PD HPI CHEST PAIN - Stated complaint Stated Complaint: CP - Chief complaint Chief Complaint: Cardiac - History obtained from History obtained from: Patient - History of Present Illness Timing - onset: Today (33-year-old woman with recurrent hypocalcemia and hypoparathyroidism who presents with sharp chest pain anterior radiating to the right shoulder and back starting today associated with mild cough and minimal shortness of breath. It is worse if she takes a deep breath or moves. She denies pedal edema or calf pain. She is on control. Denies history of heart or lung problems but she does have asthma.) Review of Systems Ten Systems: 10 systems reviewed and negative Constitutional: denies: Fever, Chills Cardiac: reports: Chest pain / pressure Respiratory: reports: Dyspnea, Cough GI: denies: Abdominal Pain PD PAST MEDICAL HISTORY - Past Medical History Cardiovascular: Hypertension Endocrine/Autoimmune: HyPOthyroidism, Other Musculoskeletal: Fatigue, Chronic back pain, Other - Past Surgical History General: Other - Present Medications Home Medications: Ambulatory Orders Medication Instructions Recorded Confirmed Calcitriol [Rocaltrol] 1.5 mcg PO DAILY #180 capsule 09/12/18 09/22/18 Cetirizine [ZyrTEC] 10 mg PO DAILY #30 tablet 09/12/18 09/22/18 Cholecalciferol [Vitamin D3] 5,000 unit PO DAILY #30 capsule 09/12/18 09/22/18 Docusate Sodium 100 mg PO BID #60 capsule 09/12/18 09/22/18 Fluticasone/Salmeterol [Advair 1 puffs INH BID #60 blst.w.dev 09/12/18 09/22/18 500-50 Diskus] Levothyroxine Sodium [Synthroid] 175 mcg PO QDAC #30 tablet 09/12/18 09/22/18 Montelukast [Singulair] 10 mg PO DAILY #30 tablet 09/12/18 09/22/18 Calcium Carbonate [Tums (Calcium 1,000 mg PO BID #120 tablet 09/20/18 09/22/18 Carbonate 500mg)] Cyclobenzaprine [Flexeril] 10 mg PO TID PRN #90 tablet 09/20/18 09/22/18 Gabapentin [Neurontin] 100 mg PO TID #90 capsule 09/20/18 09/22/18 Hydrocodone/Acetaminophen 1 - 2 each PO Q6H PRN #10 tablet 09/22/18 [Hydrocodon-Acetaminophen 5-325] Magnesium Oxide 250 mg PO DAILY 09/22/18 09/22/18 Rivaroxaban [Xarelto] 15 mg PO BID #42 tablet 09/22/18 Rivaroxaban [Xarelto] 20 mg PO DAILY #30 tablet 09/22/18 - Allergies Allergies/Adverse Reactions: Allergies Allergy/AdvReac Type Severity Reaction Status Date / Time latex Allergy Anaphylaxis Verified 09/22/18 15:56 metformin Allergy Anaphylaxis Verified 09/22/18 15:56 sertraline [From Zoloft] Allergy Anaphylaxis Verified 09/22/18 15:56 - Social History Does the pt smoke?: No Smoking Status: Never smoker Does the pt drink ETOH?: No Does the pt have substance abuse?: No - Immunizations Immunizations are current?: Yes - POLST Patient has POLST: No POLST Status: Full Code PD ED PE NORMAL - Vitals Vital signs reviewed: Yes - General General: Alert and oriented X 3, No acute distress - HEENT HEENT: PERRL, EOMI, Other (Hirsute) - Neck Neck: Supple, no meningeal sign, No bony TTP - Cardiac Cardiac: RRR, No murmur - Respiratory Respiratory: No respiratory distress, Clear bilaterally - Abdomen Abdomen: Non tender - Extremities Extremities: No edema, No calf tenderness / cord - Neuro Neuro: Alert and oriented X 3, Normal speech Results - Vitals Vitals: Vital Signs - 24 hr 09/22/18 09/22/18 15:23 15:44 Temperature 36.1 C L Heart Rate 80 87 Respiratory 18 18 Rate Blood Pressure 133/92 H 139/110 H O2 Saturation 100 96 Oxygen O2 Source Room air - EKG (time done) 1532 Rate: Rate (enter#) (92) Rhythm: NSR [place]: Normal Intervals: Normal MO QRS: Normal Ischemia: Normal ST segments Computer interpretation: Agree with computer - Labs Labs: Laboratory Tests 09/22/18 09/22/18 09/22/18 15:35 15:35 15:35 WBC 6.2 RBC 4.38 Hgb 13.3 Hct 37.8 MCV 86.4 MCH 30.4 MCHC 35.1 RDW 13.7 Plt Count 203 MPV 7.3 L Neut # (Auto) 4.0 Lymph # (Auto) 1.6 [place] # (Auto) 0.5 Eos # (Auto) 0.1 Baso # (Auto) 0.1 Absolute Nucleated RBC 0.01 Nucleated RBC % 0.1 D-Dimer Sodium 138 Potassium 3.9 Chloride 98 L Carbon Dioxide 32 Anion Gap 8.0 BUN 10 Creatinine 0.7 Estimated GFR (MDRD) 117 Glucose 108 H Calcium 8.4 L Total Bilirubin 0.5 AST 20 ALT 15 Alkaline Phosphatase 86 Troponin I < 0.04 Total Protein 7.6 Albumin 3.5 Globulin 4.1 Albumin/Globulin Ratio 0.9 L Lipase 62 H 09/22/18 15:35 WBC RBC Hgb Hct MCV MCH MCHC RDW Plt Count MPV Neut # (Auto) Lymph # (Auto) [place] # (Auto) Eos # (Auto) Baso # (Auto) Absolute Nucleated RBC Nucleated RBC % D-Dimer 647.9 H Sodium Potassium Chloride Carbon Dioxide Anion Gap BUN Creatinine Estimated GFR (MDRD) Glucose Calcium Total Bilirubin AST ALT Alkaline Phosphatase Troponin I Total Protein Albumin Globulin Albumin/Globulin Ratio Lipase - Rads (name of study) CTA Chest Radiology: EMP read contemporaneously (Small LLL PE) PD MEDICAL DECISION MAKING - ED course ED course: This is a 33-year-old woman who presents with pleuritic chest pain and recent hospitalization. Her d-dimer is positive and follow-up CT does show a small left lower lobe PE. Her PE severity index score is very low and merits outpatient management for which Xarelto was chosen. Departure - Departure Disposition: 01 Home, Self Care Clinical Impression: Pulmonary embolism Qualifiers: Pulmonary embolism type: other Chronicity: acute Acute cor pulmonale presence: without acute cor pulmonale Qualified Code(s): I26.99 - Other pulmonary embolism without acute cor pulmonale Condition: Good Record reviewed to determine appropriate education?: Yes Instructions: Embolism Pulmonary Dc Prescriptions: Hydrocodone/Acetaminophen [Hydrocodon-Acetaminophen 5-325] 1 - 2 each PO Q6H PRN #10 tablet PRN Reason: pain Rivaroxaban [Xarelto] 15 mg PO BID #42 tablet Rivaroxaban [Xarelto] 20 mg PO DAILY #30 tablet Comments: As discussed you have a very small blood clot in your left lung. This was causing the chest pain. For the first 3 weeks she will take the blood thinner Twice a day, then you go to a slightly higher dose but only take it once a day. Follow-up with your physician on the as scheduled. Your blood pressure was elevated today on check into the emergency department. This does not mean that you have hypertension, it is a common phenomenon to come to the emergency department and have elevated blood pressure. I recommend that you see your primary care physician within the week to have it rechecked when you are feeling better.
[2018-09-22 15:55] LABS: BASOPHILS # (AUTO) 0.1 10^3/uL (0.0-0.1); BASOPHILS % (AUTO) 1.3 %; EOSINOPHILS # (AUTO) 0.1 10^3/uL (0.0-0.7); HGB - HEMOGLOBIN 13.3 g/dL (12.0-16.0); LYMPHOCYTES # (AUTO) 1.6 10^3/uL (1.5-3.5); LYMPHOCYTES % (AUTO) 25.5 %; MEAN CORPUSCULAR HEMOGLOBIN 30.4 pg (27.0-31.0); MEAN CORPUSCULAR HGB CONC 35.1 g/dL (32.0-36.0); MEAN CORPUSCULAR VOLUME 86.4 fL (81.0-99.0); MEAN PLATELET VOLUME 7.3 fL (7.9-10.8); MONOCYTES # (AUTO) 0.5 10^3/uL (0.0-1.0); MONOCYTES % (AUTO) 7.7 %; NEUTROPHILS % (AUTO) 64.5 %; PLT - PLATELET COUNT 203 10^3/uL (130-450); RED BLOOD COUNT 4.38 10^6/uL (4.20-5.40); RED CELL DISTRIBUTION WIDTH 13.7 % (12.0-15.0); WHITE BLOOD COUNT 6.2 x10^3/uL (4.8-10.8)
[2018-09-22 16:03] LABS: ALBUMIN 3.5 g/dL (3.2-5.5); ALBUMIN/GLOBULIN RATIO 0.9 (1.0-2.2); BILIRUBIN,TOTAL 0.5 mg/dL (0.2-1.0); CALCIUM 8.4 mg/dL (8.5-10.3); CREATININE 0.7 mg/dL (0.4-1.0); TOTAL PROTEIN 7.6 g/dL (6.7-8.2)
[2018-09-22] MEDS: KETOROLAC 30 MG/ML VIAL IVP STA (16:03)
--- NOTE | 2018-09-22 16:28 | XRAY Report ---
Reason: chest pain Procedure Date: 09/22/2018 Accession Number: [id number] / [id number] Procedure: XR - Chest 1 View X-Ray CPT Code: 19573 FULL RESULT: EXAM: CHEST RADIOGRAPHY EXAM DATE: 09/22/2018 04:10 PM. CLINICAL HISTORY: Chest pain. COMPARISON: CHEST FOR LINE PLACEMENT 09/19/2018 3:10 PM. TECHNIQUE: 1 view. FINDINGS: Lungs/Pleura: No focal opacities evident. No pleural effusion. No pneumothorax. Mediastinum: Within exam limitations, the cardiomediastinal contour is normal. Other: Right-sided PICC line and subclavian veins stable position IMPRESSION: No active cardiopulmonary disease [facility]
[2018-09-22] MEDS: IOVERSOL 320 100 ML VIAL IVP ONE (16:42)
--- NOTE | 2018-09-22 17:21 | CT Report ---
Reason: CP, high dimer Procedure Date: 09/22/2018 Accession Number: [id number] / [id number] Procedure: CT - Chest Angio (PE) CPT Code: FULL RESULT: EXAM: CT ANGIOGRAM CHEST EXAM DATE: 09/22/2018 04:36 PM. CLINICAL HISTORY: Chest pain, high dimer. COMPARISON: CHEST 1 VIEW 09/22/2018 3:59 PM. TECHNIQUE: Routine helical imaging was performed through the chest in the pulmonary arterial phase. IV Contrast: OPTI 320 80 ML. Reconstructions: Coronal 3-D MIP reconstructions.Sagittal and coronal. In accordance with CT protocol optimization, one or more of the following dose reduction techniques were utilized for this exam: automated exposure control, adjustment of mA and/or KV based on patient size, or use of iterative reconstructive technique. FINDINGS: Mediastinum: Normal heart size. No evidence for cor pulmonale. No thoracic aortic aneurysm. No mediastinal or hilar lymphadenopathy. Filling defects concerning for pulmonary emboli seen in the left lower lobe segmental and subsegmental pulmonary arteries. Small pulmonary emboli burden. No mediastinal or hilar lymphadenopathy. Left hilar calcified lymph nodes. Lungs: Motion artifact limited. There are a couple of pleural-based left upper lobe posterior mostly calcified pulmonary nodules, the largest one is the most superior one measuring 1.4 cm. No pleural effusion or pneumothorax. Upper abdomen: No acute findings. Multiple subcutaneous soft tissue multiple calcifications. No acute bone findings are seen. IMPRESSION: 1. Left lower lobe segmental and subsegmental pulmonary emboli. Small pulmonary emboli burden. 2. There are a couple of pleural-based left upper lobe posterior mostly calcified pulmonary nodules, the largest one is the most superior one measuring 1.4 cm. Follow-up imaging recommended to ensure stability. Suspect old granulomatous disease. Left hilar calcified lymph nodes. 3. See above. RAD[facility] The call report notification system was initiated by Dr. Joselyn Aviles at 05:11 PM on 09/22/2018. The above findings were discussed with Robert Arias by Dr. Joselyn Aviles at 05:14 PM on 09/22/2018.
[2018-09-22] MEDS: RIVAROXABAN 15 MG TABLET PO STA (17:26)
[2018-09-22 17:39] VITALS: BP 143/106
== END 2018-09-22 18:17 | disposition home or self-care (01) ==
LOC: EDUNIT# → ED 15:22
DX: I26.99 Other pulmonary embolism without acute cor pulmonale (principal); I10 Essential (primary) hypertension; E03.9 Hypothyroidism, unspecified
CPT/HCPCS: 36415; 71045; 71275; 80053; 83690; 84484; 85025; 85379; 93005; 96374; 99283; 99284; A9270; Q9967

== ENCOUNTER 2018-10-10 13:30 | Outpatient (CLI) | payer MEDICAID | END 2018-10-10 13:31 | disposition critical access hospital (66) | LOC: EMS 13:30 | PROVIDERS: ATTEND Surgery | DX: R25.2 Cramp and spasm (principal) ==

== ENCOUNTER 2018-10-10 13:48 | Observation (INO) | payer MEDICAID ==
[2018-10-10 14:16] LABS: BILIRUBIN,URINE NEGATIVE (NEGATIVE); GLUCOSE, URINE (UA) NEGATIVE (NEGATIVE); KETONES,URINE (UA) TRACE mg/dL (NEGATIVE); LEUKOCYTE ESTERASE, URINE NEGATIVE (NEGATIVE); NITRITE,URINE NEGATIVE (NEGATIVE); OCCULT BLOOD,URINE TRACE-INTA (NEGATIVE); PH,URINE 5.5 PH (5.0-7.5); PROTEIN,URINE NEGATIVE (NEGATIVE); UROBILINOGEN,URINE 0.2 (NORMAL) E.U./dL (NORMAL)
[2018-10-10 14:19] LABS: CLARITY,URINE CLOUDY (CLEAR)
[2018-10-10 14:26] LABS: BACTERIA,URINE Moderate /HPF (None Seen); RBC,URINE 0-5 /HPF (0-5); SQUAMOUS EPITHELIAL CELL,UR MANY Squamous (<= Few)
--- NOTE | 2018-10-10 14:27 | ED Physician Documentation ---
History of Present Illness - Stated complaint Stated Complaint: LEG CRAMPING - Chief complaint Chief Complaint: General - History obtained from History obtained from: Patient, EMS - History of Present Illness Timing: How many days ago (3) Pain level max: 3 Pain level now: 2 Improved by: nothing Worsened by: nothing - Additonal information Additional information: 33-year-old female presents to the emergency department with muscle cramping and body aches. Has a history of Karrie's syndrome. Symptoms are typical of her hypocalcemia. Last admitted approximately 3 weeks ago for same Review of Systems Ten Systems: 10 systems reviewed and negative Constitutional: denies: Fever, Chills Nose: denies: Rhinorrhea / runny nose, Congestion Cardiac: denies: Chest pain / pressure Respiratory: denies: Cough GI: denies: Abdominal Pain, Nausea, Vomiting, Diarrhea Skin: denies: Rash Musculoskeletal: denies: Neck pain, Back pain Neurologic: denies: Headache PD PAST MEDICAL HISTORY - Past Medical History Past Medical History: Yes Cardiovascular: Hypertension Respiratory: Asthma Neuro: None Endocrine/Autoimmune: Type 2 diabetes, HyPOthyroidism, Other GI: GERD ON SITE SOIL 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 : Renal insuffiency HEENT: None Psych: None Musculoskeletal: Fatigue, Chronic back pain, Other Derm: None - Past Surgical History Past Surgical History: Yes General: Other - Present Medications Home Medications: Ambulatory Orders Medication Instructions Recorded Confirmed Calcitriol [Rocaltrol] 1.5 mcg PO DAILY #180 capsule 09/12/18 10/10/18 Cetirizine [ZyrTEC] 10 mg PO DAILY #30 tablet 09/12/18 10/10/18 Cholecalciferol [Vitamin D3] 5,000 unit PO DAILY #30 capsule 09/12/18 10/10/18 Docusate Sodium 100 mg PO BID #60 capsule 09/12/18 10/10/18 Fluticasone/Salmeterol [Advair 1 puffs INH BID #60 blst.w.dev 09/12/18 10/10/18 500-50 Diskus] Levothyroxine Sodium [Synthroid] 175 mcg PO QDAC #30 tablet 09/12/18 10/10/18 Montelukast [Singulair] 10 mg PO DAILY #30 tablet 09/12/18 10/10/18 Calcium Carbonate [Tums (Calcium 1,000 mg PO BID #120 tablet 09/20/18 10/10/18 Carbonate 500mg)] Cyclobenzaprine [Flexeril] 10 mg PO TID PRN #90 tablet 09/20/18 10/10/18 Hydrocodone/Acetaminophen 1 - 2 each PO Q6H PRN #10 tablet 09/22/18 10/10/18 [Hydrocodon-Acetaminophen 5-325] Magnesium Oxide 250 mg PO DAILY 09/22/18 10/10/18 Rivaroxaban [Xarelto] 20 mg PO DAILY #30 tablet 09/22/18 10/10/18 Amitriptyline [Elavil] 25 mg PO QPM 10/10/18 10/10/18 Fluticasone [Flonase] 1 sprays MARIKA BID 10/10/18 10/10/18 Norgestimate-Ethinyl Estradiol 1 each PO DAILY 10/10/18 10/10/18 [[id number] Tablet] - Allergies Allergies/Adverse Reactions: Allergies Allergy/AdvReac Type Severity Reaction Status Date / Time latex Allergy Severe Anaphylaxis Verified 10/10/18 17:06 metformin Allergy Severe Anaphylaxis Verified 10/10/18 17:06 sertraline [From Zoloft] Allergy Severe Anaphylaxis Verified 10/10/18 17:06 - Social History Does the pt smoke?: No Smoking Status: Never smoker Does the pt drink ETOH?: Yes ETOH Use: Liquor Does the pt have substance abuse?: No Substance Use and Type: Marijuana - Immunizations Immunizations are current?: Yes - POLST Patient has POLST: No POLST Status: Full Code PD ED PE NORMAL - Vitals Vital signs reviewed: Yes - General General: Alert and oriented X 3, No acute distress - HEENT HEENT: Moist mucous membranes - Neck Neck: Supple, no meningeal sign - Cardiac Cardiac: RRR - Respiratory Respiratory: No respiratory distress, Clear bilaterally - Abdomen Abdomen: Soft, Non tender, Non distended - Back Back: No spinal TTP - Derm Derm: Warm and dry, No rash - Extremities Extremities: No calf tenderness / cord - Neuro Neuro: Alert and oriented X 3 - Psych Psych: Normal mood, Normal affect Results - Vitals Vitals: Vital Signs - 24 hr 10/10/18 10/10/18 13:50 14:47 Temperature 36.3 C L Heart Rate 100 88 Respiratory 16 18 Rate Blood Pressure 125/107 H 115/50 L O2 Saturation 96 96 Oxygen O2 Source Room air - Labs Labs: Laboratory Tests 10/10/18 10/10/18 10/10/18 13:50 15:05 15:05 WBC 3.9 L RBC 4.85 Hgb 14.4 Hct 41.5 MCV 85.4 MCH 29.6 MCHC 34.7 RDW 14.0 Plt Count 308 MPV 7.5 L Neut # (Auto) 1.9 Lymph # (Auto) 1.4 L [place] # (Auto) 0.3 Eos # (Auto) 0.2 Baso # (Auto) 0.1 Absolute Nucleated RBC 0.00 Nucleated RBC % 0.1 VBG pH Ionized Calcium Sodium 140 Potassium 3.7 Chloride 100 L Carbon Dioxide 31 Anion Gap 9.0 BUN 13 Creatinine 0.8 Estimated GFR (MDRD) 100 Glucose 96 Calcium 7.7 L Phosphorus 4.0 Magnesium 1.8 Total Bilirubin 0.5 AST 26 ALT 22 Alkaline Phosphatase 84 Troponin I B-Natriuretic Peptide Total Protein 8.2 Albumin 4.1 Globulin 4.1 Albumin/Globulin Ratio 1.0 Lipase 53 H PTH Intact Urine Color YELLOW Urine Clarity CLOUDY Urine pH 5.5 Ur Specific [place] >=1.030 H Urine Protein NEGATIVE Urine Glucose (UA) NEGATIVE Urine Ketones TRACE Urine Occult Blood TRACE-INTA Urine Nitrite NEGATIVE Urine Bilirubin NEGATIVE Urine Urobilinogen 0.2 (NORMAL) Ur Leukocyte Esterase NEGATIVE Urine RBC 0-5 Urine WBC 4-5 Ur Squamous Epith Cells MANY Squamous H Urine Bacteria Moderate H Ur Microscopic Review INDICATED Urine Culture Comments NOT INDICATED 10/10/18 10/10/18 10/10/18 15:05 15:05 15:05 WBC RBC Hgb Hct MCV MCH MCHC RDW Plt Count MPV Neut # (Auto) Lymph # (Auto) [place] # (Auto) Eos # (Auto) Baso # (Auto) Absolute Nucleated RBC Nucleated RBC % VBG pH 7.356 Ionized Calcium 0.95 L Sodium Potassium Chloride Carbon Dioxide Anion Gap BUN Creatinine Estimated GFR (MDRD) Glucose Calcium Phosphorus Magnesium Total Bilirubin AST ALT Alkaline Phosphatase Troponin I < 0.04 B-Natriuretic Peptide 5 Total Protein Albumin Globulin Albumin/Globulin Ratio Lipase PTH Intact Urine Color Urine Clarity Urine pH Ur Specific [place] Urine Protein Urine Glucose (UA) Urine Ketones Urine Occult Blood Urine Nitrite Urine Bilirubin Urine Urobilinogen Ur Leukocyte Esterase Urine RBC Urine WBC Ur Squamous Epith Cells Urine Bacteria Ur Microscopic Review Urine Culture Comments 10/10/18 15:05 WBC RBC Hgb Hct MCV MCH MCHC RDW Plt Count MPV Neut # (Auto) Lymph # (Auto) [place] # (Auto) Eos # (Auto) Baso # (Auto) Absolute Nucleated RBC Nucleated RBC % VBG pH Ionized Calcium Sodium Potassium Chloride Carbon Dioxide Anion Gap BUN Creatinine Estimated GFR (MDRD) Glucose Calcium Phosphorus Magnesium Total Bilirubin AST ALT Alkaline Phosphatase Troponin I B-Natriuretic Peptide Total Protein Albumin Globulin Albumin/Globulin Ratio Lipase PTH Intact 475 H Urine Color Urine Clarity Urine pH Ur Specific [place] Urine Protein Urine Glucose (UA) Urine Ketones Urine Occult Blood Urine Nitrite Urine Bilirubin Urine Urobilinogen Ur Leukocyte Esterase Urine RBC Urine WBC Ur Squamous Epith Cells Urine Bacteria Ur Microscopic Review Urine Culture Comments PD MEDICAL DECISION MAKING - ED course Complexity details: reviewed results, re-evaluated patient, considered differential, d/w patient ED course: 33-year-old female with her usual hypocalcemia and muscle cramping. Has a PICC line in place. Will place in observation for further care. Discussed case with hospitalist, Dr. Ramirez who accepts. This document was made in part using voice recognition software. While efforts are made to proofread this document, sound alike and grammatical errors may occur. Departure - Departure Disposition: ED Place in Observation Clinical Impression: Hypocalcemia Condition: Good Discharge Date/Time: 10/10/18 18:00
[2018-10-10 15:22] LABS: BASOPHILS # (AUTO) 0.1 10^3/uL (0.0-0.1); BASOPHILS % (AUTO) 1.3 %; EOSINOPHILS # (AUTO) 0.2 10^3/uL (0.0-0.7); EOSINOPHILS % (AUTO) 4.2 %; HGB - HEMOGLOBIN 14.4 g/dL (12.0-16.0); LYMPHOCYTES # (AUTO) 1.4 10^3/uL (1.5-3.5); LYMPHOCYTES % (AUTO) 37.5 %; MEAN CORPUSCULAR HEMOGLOBIN 29.6 pg (27.0-31.0); MEAN CORPUSCULAR HGB CONC 34.7 g/dL (32.0-36.0); MEAN CORPUSCULAR VOLUME 85.4 fL (81.0-99.0); MEAN PLATELET VOLUME 7.5 fL (7.9-10.8); MONOCYTES # (AUTO) 0.3 10^3/uL (0.0-1.0); MONOCYTES % (AUTO) 7.5 %; NEUTROPHILS # (AUTO) 1.9 10^3/uL (1.5-6.6); NEUTROPHILS % (AUTO) 49.5 %; PLT - PLATELET COUNT 308 10^3/uL (130-450); RED BLOOD COUNT 4.85 10^6/uL (4.20-5.40); WHITE BLOOD COUNT 3.9 x10^3/uL (4.8-10.8)
[2018-10-10 15:31] LABS: ALBUMIN 4.1 g/dL (3.2-5.5); BILIRUBIN,TOTAL 0.5 mg/dL (0.2-1.0); CALCIUM 7.7 mg/dL (8.5-10.3); CREATININE 0.8 mg/dL (0.4-1.0); MAGNESIUM 1.8 mg/dL (1.7-2.8); TOTAL PROTEIN 8.2 g/dL (6.7-8.2); VBG PH 7.356 (7.31-7.41)
[2018-10-10] MEDS ORDERED: ACETAMINOPHEN 325 MG TABLET PO PRN (16:35)
[2018-10-10] MEDS ORDERED: TEMAZEPAM 15 MG CAPSULE PO PRN (16:35)
[2018-10-10] MEDS ORDERED: ONDANSETRON 4 MG/2 ML VIAL IVP PRN (16:35)
[2018-10-10] MEDS ORDERED: ONDANSETRON ODT 4 MG TABLET TL PRN (16:35)
[2018-10-10] MEDS ORDERED: CYCLOBENZAPRINE 10 MG TABLET PO PRN (16:42)
[2018-10-10] MEDS ORDERED: ALTEPLASE 2 MG VIAL IC ONE ×2 (16:54→17:41)
--- NOTE | 2018-10-10 16:57 | HISTORY & PHYSICAL EXAMINATION ---
Chief Complaint - Chief Complaint Chief Complaint: hand and feet cramps History of Present Illness - Admitted From Admitted From:: [facility] ER - History Obtained From Records Reviewed: Yes History obtained from: Patient and medical record Exam Limitations: None - History of Present Illness HPI Comment/Other: Patient is a 33 year-old female with a past medical history significant of karrie hereditary osteodystrophy, pseudohypoparathroidism Type 1A; asthma; hypothyroidism; hypertension; pre-diabetes; and vitamin D deficiency who presented to the ER today with complaints of about four days of muscle cramps and spasms in her hands and feet. She reports needing to stop walking and sit down. She was recently discharged from [facility] on 09/20/2018, for the same. She was treated with IV calcium gluconate, a PICC line was inserted and she was discharged home. In the interim, she presented to to [facility] ER on 09/22/2018 and was diagnosed with a pulmonary embolism. She was started on xarelto and discharged home from the ER. She last saw her primary care provider on 10/08/2018, a Iman Eduardo. She continues to endorse pleuritic chest pain. She endorses shortness of breath with ambulation, that started today. She denies shortness of breath at rest. She denies wheezing or needing to take her PRN inhaler. Patient reports having a decreased appetite, but has been able to drink plenty of water. She reports diarrhea and nausea that started today with associated abdominal pain. For her PICC line care, she reports presenting to the [facility] clinic every Saturday for PICC brake reliner to include flushing and dressing change. In the ER, the patient reports the nurse was unable to flush her line. Patient wishes to be a full code. 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 She is independent of activities of daily living. She cannot drive. Uses public transportation. Waiting for job placement. Used to work at a [employer] in [place]. - Substance History Use: Uses substance without health or social issues: Cannabis - POLST Patient has POLST: No POLST Status: Full Code Meds/Allgy - Home Medications Home Medications: Ambulatory Orders Medication Instructions Recorded Confirmed Calcitriol [Rocaltrol] 1.5 mcg PO DAILY #180 capsule 09/12/18 10/10/18 Cetirizine [ZyrTEC] 10 mg PO DAILY #30 tablet 09/12/18 10/10/18 Cholecalciferol [Vitamin D3] 5,000 unit PO DAILY #30 capsule 09/12/18 10/10/18 Docusate Sodium 100 mg PO BID #60 capsule 09/12/18 10/10/18 Fluticasone/Salmeterol [Advair 1 puffs INH BID #60 blst.w.dev 09/12/18 10/10/18 500-50 Diskus] Levothyroxine Sodium [Synthroid] 175 mcg PO QDAC #30 tablet 09/12/18 10/10/18 Montelukast [Singulair] 10 mg PO DAILY #30 tablet 09/12/18 10/10/18 Calcium Carbonate [Tums (Calcium 1,000 mg PO BID #120 tablet 09/20/18 10/10/18 Carbonate 500mg)] Cyclobenzaprine [Flexeril] 10 mg PO TID PRN #90 tablet 09/20/18 10/10/18 Hydrocodone/Acetaminophen 1 - 2 each PO Q6H PRN #10 tablet 09/22/18 10/10/18 [Hydrocodon-Acetaminophen 5-325] Magnesium Oxide 250 mg PO DAILY 09/22/18 10/10/18 Rivaroxaban [Xarelto] 20 mg PO DAILY #30 tablet 09/22/18 10/10/18 Amitriptyline [Elavil] 25 mg PO QPM 10/10/18 10/10/18 Fluticasone [Flonase] 1 sprays MARIKA BID 10/10/18 10/10/18 Norgestimate-Ethinyl Estradiol 1 each PO DAILY 10/10/18 10/10/18 [[id number] Tablet] - Allergies Allergies/Adverse Reactions: Allergies Allergy/AdvReac Type Severity Reaction Status Date / Time latex Allergy Severe Anaphylaxis Verified 10/10/18 17:06 metformin Allergy Severe Anaphylaxis Verified 10/10/18 17:06 sertraline [From Zoloft] Allergy Severe Anaphylaxis Verified 10/10/18 17:06 Review of Systems - Constitutional Constitutional: reports: Fatigue, Poor appetite. denies: Fever, Chills - Ears, Nose & Throat Ears, Nose & Throat: reports: Nasal congestion. denies: Sore throat - Cardiovascular Cariovascular: reports: Chest pain (with breathing). denies: Irregular heart rate, Palpitations - Respiratory Respiratory: reports: SOB with exertion - Gastrointestinal Gastrointestinal: reports: Abdominal pain, Diarrhea, Nausea. denies: Constipation, Vomiting - Genitourinary Genitourinary: denies: Dysuria, Frequency, Urgency - Musculoskeletal Musculoskeletal: reports: Back pain - Neurological Neurological: denies: Focal weakness, Headache, Dizziness - Psychiatric Psychiatric: denies: Depression, Anxiety - Hematologic/Lymphatic Hematologic/Lymphatic: reports: Blood clots - All Other Systems All Other Systems: reports: Reviewed and negative Prior Level of Functionality: Patient is independent Exam - Vital Signs Reviewed Vital Signs: Yes Vital Signs: Vital Signs x48h Temp Pulse Resp BP Pulse Ox 10/10/18 14:47 88 18 115/50 L 96 10/10/18 13:50 36.3 C L 100 16 125/107 H 96 - Physical Exam General Appearance: positive: No acute distress, Alert, Other (morbidly obese) Eyes Bilateral: positive: Normal inspection, PERRL, EOMI ENT: positive: ENT inspection nml, Pharynx nml, No signs of dehydration Neck: positive: Nml inspection, Thyroid nml, Trachea midline Respiratory: positive: Chest non-tender, No respiratory distress, Breath sounds nml Cardiovascular: positive: Regular rate & rhythm, No murmur, No gallop Peripheral Pulses: positive: 2+ Abdomen: positive: Non-tender, No organomegaly, Nml bowel sounds, No distention. negative: Guarding, Rebound Back: positive: Nml inspection Skin: positive: Warm, Dry Extremities: positive: Non-tender, Full ROM, Nml appearance Neurologic/Psychiatric: positive: Oriented x3, CN's nml (2-12), Sensory loss (decreased sensation to light touch bilateral feet) Conclusion/Plan - Problem List (1) Hypocalcemia Conclusion/Plan: Patient previously admitted 09/18/2018 for symptomatic hypocalcemia. She presented to the ER today with at least 4 days of hand and feet shaking and cramping. Her calcium is 7.7 and ionized calcium 0.95. Plan: give IV calcium gluconate continue calcium carbonate continue rocatrol follow-up calcium and ionized calcium tomorrow (2) Karrie hereditary osteodystrophy Conclusion/Plan: Patient admitted with recurrent symptomatic hypocalcemia related to her karrie hereditary osteodystrophy with pseudohypoparathyroidism type 1. A PICC was placed last hospitalization for long-term management of her electrolyte disorder. Plan: as per above (3) Hypoparathyroidism Conclusion/Plan: r/t hypocalcemic hypoparathyroidism. PTH level 09/19/2018 low at 10 pg/ml. Plan: continue rocatrol check PTH Qualifiers: Hypoparathyroidism type: unspecified Qualified Code(s): E20.9 - Hypoparathyroidism, unspecified (4) Hypothyroidism Conclusion/Plan: Patient's TSH 09/19/2018 3.64 Plan: continue home synthroid Qualifiers: Hypothyroidism type: acquired Qualified Code(s): E03.9 - Hypothyroidism, unspecified (5) Shortness of breath Conclusion/Plan: Patient reports shortness of breath with ambulation requiring her to sit down and rest. She denies shortness of breath at rest. She denies wheezing or needing to use her PRN albuteral inhaler Plan: obtain CXR obtain BNP oxygen as needed to maintain oxygen saturation >92% (6) Pleuritic chest pain Conclusion/Plan: With complaints during prior hospitalization and upon presentation to the ER on 09/22/2018. Previously attributed to possible muscle spasms at the level of her chest with non-productive cough and underlying asthma. She reports the pain is in the middle of her chest and does not radiate. Likely related to her pulmonary embolism, but need to r/o cardiac causes. Plan: pain control obtain EKG troponin (7) Pulmonary embolism Conclusion/Plan: Patient presented to the ER on 09/22/2018 with pleuritic chest pain. Her D-dimer was elevated, and she underwent a CTPE, that revealed left lower lobe segmental and subsegmental pulmonary emboli with small pulmonary emoli burden. She was started on xarelto in the ED and discharged home Plan: continue xarelto obtain duplex u/s RUE where PICC line is in place to evaluate for PICC line associated DVT Qualifiers: Pulmonary embolism type: other Chronicity: acute Acute cor pulmonale presence: without acute cor pulmonale Qualified Code(s): I26.99 - Other pulmonary embolism without acute cor pulmonale (8) Pre-diabetes Conclusion/Plan: Patient reports having diet-controlled diabetes. She checks her blood sugars at home, with ranges in the 80's-100s. Hgb A1c in 09/2017 4.6% Plan: carbohydrate managed diet (9) Occluded PICC line Conclusion/Plan: Anesthesia placed PICC line during last hospitalization on 09/19/2018. Patient reports she has been going to the [facility] clinic every saturday for dressing changes and flushes. No maintenance flushing has occurred inbetween visits. Her PICC line is now occluded. Plan: Anesthesia, Dr. Blackburn, has been made aware of the patient's occluded PICC line and will evaluate the patient today. Qualifiers: Encounter type: initial encounter Qualified Code(s): T82.898A - Other specified complication of vascular prosthetic devices, implants and grafts, initial encounter (10) Morbid obesity with BMI of 50.0-59.9, adult Conclusion/Plan: Encourage healthy eating and active lifestyle (11) Full code status Conclusion/Plan: Patient wishes to be a full code. - Lab Results Lab results reviewed: Yes Elliott Bones: 10/10/18 15:05 10/10/18 15:05 Core Measures - Anticipated LOS I expect patient to be DC'd or transferred within 96 hours.: Yes - DVT/VTE - Prophylaxis VTE/DVT Device ordered at admit?: Yes
[2018-10-10] MEDS ORDERED: CALCIUM GLUCONATE 1,000 MG in SODIUM CHLORIDE 0.9% 50 ML IV SCH (17:45)
--- NOTE | 2018-10-10 18:34 | XRAY Report ---
Reason: shortness of breath Procedure Date: 10/10/2018 Accession Number: [id number] / [id number] Procedure: XR - Chest 1 View X-Ray CPT Code: 08270 FULL RESULT: EXAM: CHEST RADIOGRAPHY EXAM DATE: 10/10/2018 05:51 PM. CLINICAL HISTORY: Shortness of breath. COMPARISON: CHEST 1 VIEW 09/22/2018 3:59 PM CHEST ANGIO 09/22/2018 4:35 PM CHEST FOR LINE PLACEMENT 09/19/2018 3:10 PM. TECHNIQUE: 1 view. FINDINGS: Technique limits detail. Lungs/Pleura: No focal opacities evident. No pleural effusion. No pneumothorax. Partly calcified left apical nodule again seen. Mediastinum: Within exam limitations, the cardiomediastinal contour is normal. Other: Right-sided PICC is present with the tip in the expected position of the mid right subclavian vein. IMPRESSION: 1. No acute disease in the chest. [facility]
[2018-10-10] MEDS: RIVAROXABAN 10 MG TABLET PO SCH (18:53)
[2018-10-10] MEDS: SODIUM CHLORIDE FLUSH 0.9% 10 ML SYRINGE IVP SCH (18:54)
[2018-10-10] MEDS: BUDESONIDE 0.5 MG/2 ML NEB INH SCH (19:38)
[2018-10-10] MEDS: FORMOTEROL FUMARATE NEB 20 MCG/2 ML INH SCH (19:38)
[2018-10-10] MEDS: CALCIUM CARBONATE CHEW 500 MG TABLET PO SCH (21:11)
--- NOTE | 2018-10-11 01:04 | Ultrasound Report ---
Reason: recent PE on CTPE, r/o PICC associated DVT Procedure Date: 10/10/2018 Accession Number: [id number] / [id number] Procedure: US - Duplex Ext Veins Right CPT Code: FULL RESULT: EXAM: RIGHT UPPER EXTREMITY VENOUS ULTRASOUND EXAM DATE: 10/10/2018 11:19 PM. CLINICAL HISTORY: Recent PE on CTPE, rule out PICC associated DVT. COMPARISON: None. TECHNIQUE: Real-time sonographic vascular imaging was performed by the gambling monitor through the upper extremity utilizing both color-flow and Doppler spectral analysis. Multiple self pay representative static images were saved for review. FINDINGS: Internal Jugular Vein (IJV): Normal. Subclavian Vein (SCV): Suboptimal visualization. What is seen of the subclavian vein is patent. Axillary Vein : Normal. Cephalic Vein (superficial vein): Not visualized. Basilic Vein (superficial vein): Normal. Brachial Vein: Normal. Contralateral Side: Subclavian Vein: Normal. Other: None. IMPRESSION: No evidence of right upper extremity deep venous thrombosis. RAD[facility]
[2018-10-11] MEDS: SODIUM CHLORIDE FLUSH 0.9% 10 ML SYRINGE IVP SCH ×3 (04:52→17:26)
[2018-10-11 05:35] LABS: BASOPHILS % (AUTO) 0.9 %; EOSINOPHILS # (AUTO) 0.2 10^3/uL (0.0-0.7); EOSINOPHILS % (AUTO) 5.3 %; HGB - HEMOGLOBIN 13.1 g/dL (12.0-16.0); LYMPHOCYTES # (AUTO) 1.6 10^3/uL (1.5-3.5); LYMPHOCYTES % (AUTO) 47.9 %; MEAN CORPUSCULAR HEMOGLOBIN 29.6 pg (27.0-31.0); MEAN CORPUSCULAR HGB CONC 34.3 g/dL (32.0-36.0); MEAN CORPUSCULAR VOLUME 86.4 fL (81.0-99.0); MEAN PLATELET VOLUME 7.4 fL (7.9-10.8); MONOCYTES # (AUTO) 0.3 10^3/uL (0.0-1.0); MONOCYTES % (AUTO) 9.7 %; NEUTROPHILS # (AUTO) 1.2 10^3/uL (1.5-6.6); NEUTROPHILS % (AUTO) 36.2 %; PLT - PLATELET COUNT 260 10^3/uL (130-450); RED BLOOD COUNT 4.44 10^6/uL (4.20-5.40); WHITE BLOOD COUNT 3.3 x10^3/uL (4.8-10.8)
[2018-10-11 05:48] LABS: BUN - BLOOD UREA NITROGEN 10 mg/dL (6-20); CALCIUM 7.9 mg/dL (8.5-10.3); CARBON DIOXIDE - CO2 31 mmol/L (21-32); CHLORIDE 100 mmol/L (101-111); CREATININE 0.6 mg/dL (0.4-1.0); GFR - MDRD 140 (>89); GLUCOSE 92 mg/dL (70-100); SODIUM 138 mmol/L (135-145)
[2018-10-11 06:13] LABS: VBG PH 7.343 (7.31-7.41)
[2018-10-11] MEDS: LEVOTHYROXINE 100 MCG TABLET PO SCH (07:25)
[2018-10-11] MEDS: LEVOTHYROXINE 75 MCG TABLET PO SCH (07:25)
[2018-10-11] MEDS: BUDESONIDE 0.5 MG/2 ML NEB INH SCH ×2 (07:58→19:18)
[2018-10-11] MEDS: FORMOTEROL FUMARATE NEB 20 MCG/2 ML INH SCH ×2 (07:58→19:18)
--- NOTE | 2018-10-11 08:52 | PROVIDER PROGRESS NOTE ---
Subjective - Prog Note Date Prog Note Date: 10/11/18 Prog Note Time: 08:15 - Subjective Subjective: Patient with continued pleuritic chest pain Sitting up in the chair, finished with breakfast Ionized calcium 1.01 today Troponin negative, BNP negative RUE duplex w/o DVT Current Medications - Current Medications Current Medications: Acetaminophen (Tylenol) 650 mg PO Q4HR PRN PRN Reason: Pain 1 to 4 Last Admin: 10/11/18 08:58 Dose: 650 mg Budesonide (Pulmicort) 0.5 mg INH RTBID [facility] Last Admin: 10/11/18 07:58 Dose: 0.5 mg Calcitriol (Rocaltrol) 1.5 mcg PO DAILY [facility] Last Admin: 10/11/18 08:54 Dose: 1.5 mcg Calcium Carbonate/Glycine (Tums) 1,000 mg PO BID [facility] Last Admin: 10/11/18 08:54 Dose: 1,000 mg Cetirizine HCl (Zyrtec) 10 mg PO DAILY [facility] Last Admin: 10/11/18 08:55 Dose: 10 mg Cholecalciferol (Vitamin D3) 5,000 unit PO DAILY [facility] Last Admin: 10/11/18 08:54 Dose: 5,000 unit Cyclobenzaprine HCl (Flexeril) 10 mg PO TID PRN PRN Reason: muscle spasms Last Admin: 10/11/18 08:58 Dose: 10 mg Formoterol Fumarate (Perforomist) 20 mcg INH RTBID [facility] Last Admin: 10/11/18 07:58 Dose: 20 mcg Calcium Gluconate 2,000 mg/ (Sodium Chloride) 70 mls @ 60 mls/hr IV DAILY [facility] Last Infusion: 10/11/18 10:43 Dose: Infused Levothyroxine Sodium (Synthroid) 100 mcg PO QDAC [facility] Last Admin: 10/11/18 07:25 Dose: 100 mcg Levothyroxine Sodium (Synthroid) 75 mcg PO QDAC [facility] Last Admin: 10/11/18 07:25 Dose: 75 mcg Magnesium Oxide (Mag Ox) 250 mg PO DAILY [facility] Last Admin: 10/11/18 08:54 Dose: 250 mg Montelukast Sodium (Singulair) 10 mg PO DAILY [facility] Last Admin: 10/11/18 08:54 Dose: 10 mg Ondansetron HCl (Zofran Inj) 4 mg IVP Q6HR PRN PRN Reason: Nausea / Vomiting Ondansetron HCl (Zofran Odt) 4 mg TL Q6HR PRN PRN Reason: Nausea / Vomiting Polyethylene Glycol (Miralax) 17 gm PO DAILY [facility] Last Admin: 10/11/18 09:00 Dose: Not Given Rivaroxaban (Xarelto) 20 mg PO QDDINNER [facility] Last Admin: 10/10/18 18:53 Dose: 20 mg Sodium Chloride (Normal Saline Flush 0.9%) 10 ml IVP PRN PRN PRN Reason: NEEDED PER PROVIDER ORDERS Last Admin: 10/11/18 09:00 Dose: 10 ml Sodium Chloride (Normal Saline Flush 0.9%) 10 ml IVP 0100,0900,1700 [facility] Last Admin: 10/11/18 08:55 Dose: 10 ml Temazepam (Restoril) 15 mg PO QPM PRN PRN Reason: Insomnia Home Medications: Magnesium Oxide 250 mg PO DAILY 09/22/18 Amitriptyline [Elavil] 25 mg PO QPM 10/10/18 Fluticasone [Flonase] 1 sprays MARIKA BID 10/10/18 Norgestimate-Ethinyl Estradiol [Oww-Kn-Arkguxep Tablet] 1 each PO DAILY 10/10/18 Objective - Vital Signs/Intake & Output Reviewed Vital Signs: Yes Vital Signs: Vital Signs x48h Temp Pulse Pulse Resp BP Pulse Ox 10/11/18 08:01 62 16 10/11/18 07:57 36.6 C 69 17 109/75 95 10/11/18 05:44 36.3 C L 69 18 103/77 97 Intake & Output: Intake & Output 10/08/18 10/09/18 10/10/18 10/11/18 23:59 23:59 23:59 23:59 Intake Total 660 Balance 660 - Objective General Appearance: positive: No acute distress, Alert, Other (obese female sitting up in the chair using her phone) Eyes Bilateral: positive: Normal inspection, PERRL, EOMI ENT: positive: ENT inspection nml, Pharynx nml, No signs of dehydration Neck: positive: Nml inspection, Trachea midline Respiratory: positive: No respiratory distress, Breath sounds nml. negative: Wheezes, Rales, Rhonchi Cardiovascular: positive: Regular rate & rhythm, No murmur, No gallop Peripheral Pulses: 2+ Dorsalis pedis (R), 2+ Dorsalis pedis (L) Abdomen: positive: Non-tender, No organomegaly, Nml bowel sounds, No distention Back: positive: Nml inspection Skin: positive: Warm, Dry Extremities: positive: Non-tender, Full ROM, Nml appearance Neurologic/Psychiatric: positive: Oriented x3, CN's nml (2-12), Motor nml, Sensory loss (decreased sensation to light touch bilateral feet) - Lab Results Fish Bones: 10/11/18 05:30 10/11/18 05:30 Other Labs: Lab Results x24hrs 10/11/18 10/11/18 10/11/18 Range/Units 05:30 05:30 05:30 WBC 3.3 L (4.8-10.8) x10^3/uL RBC 4.44 (4.20-5.40) 10^6/uL Hgb 13.1 (12.0-16.0) g/dL Hct 38.3 (37.0-47.0) % MCV 86.4 (81.0-99.0) fL MCH 29.6 (27.0-31.0) pg MCHC 34.3 (32.0-36.0) g/dL RDW 14.0 (12.0-15.0) % Plt Count 260 (130-450) 10^3/uL MPV 7.4 L (7.9-10.8) fL Neut # (Auto) 1.2 L (1.5-6.6) 10^3/uL Lymph # (Auto) 1.6 (1.5-3.5) 10^3/uL [place] # (Auto) 0.3 (0.0-1.0) 10^3/uL Eos # (Auto) 0.2 (0.0-0.7) 10^3/uL Baso # (Auto) 0.0 (0.0-0.1) 10^3/uL Absolute Nucleated RBC 0.00 x10^3/uL Nucleated RBC % 0.1 /100WBC VBG pH 7.343 (7.31-7.41) Ionized Calcium 1.01 L YES (1.15-1.33) mmol/L Sodium 138 (135-145) mmol/L Potassium 3.7 (3.5-5.0) mmol/L Chloride 100 L (101-111) mmol/L Carbon Dioxide 31 (21-32) mmol/L Anion Gap 7.0 (6-13) BUN 10 (6-20) mg/dL Creatinine 0.6 (0.4-1.0) mg/dL Estimated GFR (MDRD) 140 (>89) Glucose 92 (70-100) mg/dL Calcium 7.9 L (8.5-10.3) mg/dL Phosphorus (2.5-4.6) mg/dL Magnesium 2.0 (1.7-2.8) mg/dL Total Bilirubin (0.2-1.0) mg/dL AST (10-42) IU/L ALT (10-60) IU/L Alkaline Phosphatase (42-121) IU/L Troponin I (<0.49) ng/mL B-Natriuretic Peptide (5-100) pg/mL Total Protein (6.7-8.2) g/dL Albumin (3.2-5.5) g/dL Globulin (2.1-4.2) g/dL Albumin/Globulin Ratio (1.0-2.2) Lipase (22-51) U/L PTH Intact (12-88) pg/mL Urine Color Urine Clarity (CLEAR) Urine pH (5.0-7.5) PH Ur Specific [place] (1.002-1.030) Urine Protein (NEGATIVE) mg/dL Urine Glucose (UA) (NEGATIVE) mg/dL Urine Ketones (NEGATIVE) mg/dL Urine Occult Blood (NEGATIVE) Urine Nitrite (NEGATIVE) Urine Bilirubin (NEGATIVE) Urine Urobilinogen (NORMAL) E.U./dL Ur Leukocyte Esterase (NEGATIVE) Urine RBC (0-5) /HPF Urine WBC (0-5) /HPF Ur Squamous Epith Cells (<= Few) Urine Bacteria (None Seen) /HPF Ur Microscopic Review Urine Culture Comments 10/10/18 10/10/18 10/10/18 Range/Units 15:05 15:05 15:05 WBC (4.8-10.8) x10^3/uL RBC (4.20-5.40) 10^6/uL Hgb (12.0-16.0) g/dL Hct (37.0-47.0) % MCV (81.0-99.0) fL MCH (27.0-31.0) pg MCHC (32.0-36.0) g/dL RDW (12.0-15.0) % Plt Count (130-450) 10^3/uL MPV (7.9-10.8) fL Neut # (Auto) (1.5-6.6) 10^3/uL Lymph # (Auto) (1.5-3.5) 10^3/uL [place] # (Auto) (0.0-1.0) 10^3/uL Eos # (Auto) (0.0-0.7) 10^3/uL Baso # (Auto) (0.0-0.1) 10^3/uL Absolute Nucleated RBC x10^3/uL Nucleated RBC % /100WBC VBG pH (7.31-7.41) Ionized Calcium (1.15-1.33) mmol/L Sodium (135-145) mmol/L Potassium (3.5-5.0) mmol/L Chloride (101-111) mmol/L Carbon Dioxide (21-32) mmol/L Anion Gap (6-13) BUN (6-20) mg/dL Creatinine (0.4-1.0) mg/dL Estimated GFR (MDRD) (>89) Glucose (70-100) mg/dL Calcium (8.5-10.3) mg/dL Phosphorus (2.5-4.6) mg/dL Magnesium (1.7-2.8) mg/dL Total Bilirubin (0.2-1.0) mg/dL AST (10-42) IU/L ALT (10-60) IU/L Alkaline Phosphatase (42-121) IU/L Troponin I < 0.04 (<0.49) ng/mL B-Natriuretic Peptide 5 (5-100) pg/mL Total Protein (6.7-8.2) g/dL Albumin (3.2-5.5) g/dL Globulin (2.1-4.2) g/dL Albumin/Globulin Ratio (1.0-2.2) Lipase (22-51) U/L PTH Intact 475 H (12-88) pg/mL Urine Color Urine Clarity (CLEAR) Urine pH (5.0-7.5) PH Ur Specific [place] (1.002-1.030) Urine Protein (NEGATIVE) mg/dL Urine Glucose (UA) (NEGATIVE) mg/dL Urine Ketones (NEGATIVE) mg/dL Urine Occult Blood (NEGATIVE) Urine Nitrite (NEGATIVE) Urine Bilirubin (NEGATIVE) Urine Urobilinogen (NORMAL) E.U./dL Ur Leukocyte Esterase (NEGATIVE) Urine RBC (0-5) /HPF Urine WBC (0-5) /HPF Ur Squamous Epith Cells (<= Few) Urine Bacteria (None Seen) /HPF Ur Microscopic Review Urine Culture Comments 10/10/18 10/10/18 10/10/18 Range/Units 15:05 15:05 15:05 WBC 3.9 L (4.8-10.8) x10^3/uL RBC 4.85 (4.20-5.40) 10^6/uL Hgb 14.4 (12.0-16.0) g/dL Hct 41.5 (37.0-47.0) % MCV 85.4 (81.0-99.0) fL MCH 29.6 (27.0-31.0) pg MCHC 34.7 (32.0-36.0) g/dL RDW 14.0 (12.0-15.0) % Plt Count 308 (130-450) 10^3/uL MPV 7.5 L (7.9-10.8) fL Neut # (Auto) 1.9 (1.5-6.6) 10^3/uL Lymph # (Auto) 1.4 L (1.5-3.5) 10^3/uL [place] # (Auto) 0.3 (0.0-1.0) 10^3/uL Eos # (Auto) 0.2 (0.0-0.7) 10^3/uL Baso # (Auto) 0.1 (0.0-0.1) 10^3/uL Absolute Nucleated RBC 0.00 x10^3/uL Nucleated RBC % 0.1 /100WBC VBG pH 7.356 (7.31-7.41) Ionized Calcium 0.95 L (1.15-1.33) mmol/L Sodium 140 (135-145) mmol/L Potassium 3.7 (3.5-5.0) mmol/L Chloride 100 L (101-111) mmol/L Carbon Dioxide 31 (21-32) mmol/L Anion Gap 9.0 (6-13) BUN 13 (6-20) mg/dL Creatinine 0.8 (0.4-1.0) mg/dL Estimated GFR (MDRD) 100 (>89) Glucose 96 (70-100) mg/dL Calcium 7.7 L (8.5-10.3) mg/dL Phosphorus 4.0 (2.5-4.6) mg/dL Magnesium 1.8 (1.7-2.8) mg/dL Total Bilirubin 0.5 (0.2-1.0) mg/dL AST 26 (10-42) IU/L ALT 22 (10-60) IU/L Alkaline Phosphatase 84 (42-121) IU/L Troponin I (<0.49) ng/mL B-Natriuretic Peptide (5-100) pg/mL Total Protein 8.2 (6.7-8.2) g/dL Albumin 4.1 (3.2-5.5) g/dL Globulin 4.1 (2.1-4.2) g/dL Albumin/Globulin Ratio 1.0 (1.0-2.2) Lipase 53 H (22-51) U/L PTH Intact (12-88) pg/mL Urine Color Urine Clarity (CLEAR) Urine pH (5.0-7.5) PH Ur Specific [place] (1.002-1.030) Urine Protein (NEGATIVE) mg/dL Urine Glucose (UA) (NEGATIVE) mg/dL Urine Ketones (NEGATIVE) mg/dL Urine Occult Blood (NEGATIVE) Urine Nitrite (NEGATIVE) Urine Bilirubin (NEGATIVE) Urine Urobilinogen (NORMAL) E.U./dL Ur Leukocyte Esterase (NEGATIVE) Urine RBC (0-5) /HPF Urine WBC (0-5) /HPF Ur Squamous Epith Cells (<= Few) Urine Bacteria (None Seen) /HPF Ur Microscopic Review Urine Culture Comments 10/10/18 Range/Units 13:50 WBC (4.8-10.8) x10^3/uL RBC (4.20-5.40) 10^6/uL Hgb (12.0-16.0) g/dL Hct (37.0-47.0) % MCV (81.0-99.0) fL MCH (27.0-31.0) pg MCHC (32.0-36.0) g/dL RDW (12.0-15.0) % Plt Count (130-450) 10^3/uL MPV (7.9-10.8) fL Neut # (Auto) (1.5-6.6) 10^3/uL Lymph # (Auto) (1.5-3.5) 10^3/uL [place] # (Auto) (0.0-1.0) 10^3/uL Eos # (Auto) (0.0-0.7) 10^3/uL Baso # (Auto) (0.0-0.1) 10^3/uL Absolute Nucleated RBC x10^3/uL Nucleated RBC % /100WBC VBG pH (7.31-7.41) Ionized Calcium (1.15-1.33) mmol/L Sodium (135-145) mmol/L Potassium (3.5-5.0) mmol/L Chloride (101-111) mmol/L Carbon Dioxide (21-32) mmol/L Anion Gap (6-13) BUN (6-20) mg/dL Creatinine (0.4-1.0) mg/dL Estimated GFR (MDRD) (>89) Glucose (70-100) mg/dL Calcium (8.5-10.3) mg/dL Phosphorus (2.5-4.6) mg/dL Magnesium (1.7-2.8) mg/dL Total Bilirubin (0.2-1.0) mg/dL AST (10-42) IU/L ALT (10-60) IU/L Alkaline Phosphatase (42-121) IU/L Troponin I (<0.49) ng/mL B-Natriuretic Peptide (5-100) pg/mL Total Protein (6.7-8.2) g/dL Albumin (3.2-5.5) g/dL Globulin (2.1-4.2) g/dL Albumin/Globulin Ratio (1.0-2.2) Lipase (22-51) U/L PTH Intact (12-88) pg/mL Urine Color YELLOW Urine Clarity CLOUDY (CLEAR) Urine pH 5.5 (5.0-7.5) PH Ur Specific [place] >=1.030 H (1.002-1.030) Urine Protein NEGATIVE (NEGATIVE) mg/dL Urine Glucose (UA) NEGATIVE (NEGATIVE) mg/dL Urine Ketones TRACE (NEGATIVE) mg/dL Urine Occult Blood [place] (NEGATIVE) Urine Nitrite NEGATIVE (NEGATIVE) Urine Bilirubin NEGATIVE (NEGATIVE) Urine Urobilinogen 0.2 (NORMAL) (NORMAL) E.U./dL Ur Leukocyte Esterase NEGATIVE (NEGATIVE) Urine RBC 0-5 (0-5) /HPF Urine WBC 4-5 (0-5) /HPF Ur Squamous Epith Cells MANY Squamous H (<= Few) Urine Bacteria Moderate H (None Seen) /HPF Ur Microscopic Review INDICATED Urine Culture Comments NOT INDICATED Assessment/Plan - Problem List (1) Hypocalcemia Impression: Patient previously admitted 09/18/2018 for symptomatic hypocalcemia. She presented to the ER 10/10/2018 with at least 4 days of hand and feet shaking and cramping. Her calcium was 7.7 and ionized calcium 0.95. She received 1 dose of calcium gl uconate. Today her calcium is 7.9 with ionized calcium of 1.01. 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 Intact PTH 475. A PICC was placed last hospitalization for long-term management of her electrolyte disorder. Patient reports that prior to her move to [facility], she was hospitalized roughly every 3 months for symptoms related to hypocalcemia. Plan: as per above she is scheduled to see an customer service specialist on 11/17/2018 (4) Hypothyroidism Impression: Patient's TSH 09/19/2018 3.64 Plan: continue home synthroid Qualifiers: Hypothyroidism type: acquired Qualified Code(s): E03.9 - Hypothyroidism, unspecified (5) Shortness of breath Impression: Patient reports shortness of breath with ambulation requiring her to sit down and rest. She denies shortness of breath at rest. She denies wheezing or needing to use her PRN albuteral inhaler. CXR unremarkable, BNP level 5. Symptoms have improved today, able to ambulate without difficulty Plan: oxygen as needed to maintain oxygen saturation >92% (6) Pleuritic chest pain Impression: With complaints during prior hospitalization and upon presentation to the ER on 09/22/2018. Previously attributed to possible muscle spasms at the level of her chest with non-productive cough and underlying asthma. She reports the pain is in the middle of her chest and does not radiate. Likely related to her pulmonary embolism, as troponin and EKG unremarkable. Plan: discontinue tele pain control (7) Pulmonary embolism Impression: Patient presented to the ER on 09/22/2018 with pleuritic chest pain. Her D-dimer was elevated, and she underwent a CTPE, that revealed left lower lobe segmental and subsegmental pulmonary emboli with small pulmonary emoli burden. She was started on xarelto in the ED and discharged home. RUE duplex obtained 10/10/2018 negative for PICC line associated DVT. Plan: continue xarelto Qualifiers: Pulmonary embolism type: other Chronicity: acute Acute cor pulmonale presence: without acute cor pulmonale Qualified Code(s): I26.99 - Other pulmonary embolism without acute cor pulmonale (8) Pre-diabetes Impression: Patient reports having diet-controlled diabetes. She checks her blood sugars at home, with ranges in the 80's-100s. Hgb A1c in 09/2017 4.6% Plan: carbohydrate managed diet (9) Occluded PICC line Impression: Anesthesia placed PICC line during last hospitalization on 09/19/2018. Patient reports she has been going to the [facility] clinic every saturday for dressing changes and flushes. No maintenance flushing has occurred inbetween visits. Anesthesia, Dr. Blackburn evaluated patient 10/10/2018 and was able to unclog one port. Plan: start teaching the patient to flush her line so this can be completed inbetween visits at the [facility] Qualifiers: Encounter type: initial encounter Qualified Code(s): T82.898A - Other specified complication of vascular prosthetic devices, implants and grafts, initial encounter (10) Morbid obesity with BMI of 50.0-59.9, adult Impression: Encourage healthy eating and active lifestyle
[2018-10-11] MEDS: MONTELUKAST 10 MG TABLET PO SCH (08:54)
[2018-10-11] MEDS: MAGNESIUM OXIDE 400 MG TABLET PO SCH (08:54)
[2018-10-11] MEDS: CHOLECALCIFEROL 5,000 UNIT CAPSULE PO SCH (08:54)
[2018-10-11] MEDS: CALCITRIOL 0.25 MCG CAPSULE PO SCH (08:54)
[2018-10-11] MEDS: CALCIUM CARBONATE CHEW 500 MG TABLET PO SCH ×2 (08:54→20:22)
[2018-10-11] MEDS: SODIUM CHLORIDE FLUSH 0.9% 10 ML SYRINGE IVP PRN ×2 (08:55→09:00)
[2018-10-11] MEDS: CETIRIZINE 10 MG TABLET PO SCH (08:55)
[2018-10-11] MEDS: POLYETHYLENE GLYCOL 3350 17 GM PACKET PO SCH (09:00)
[2018-10-11] MEDS: CALCIUM GLUCONATE 2,000 MG in SODIUM CHLORIDE 0.9% 50 ML IV SCH (09:32)
[2018-10-11] MEDS: RIVAROXABAN 10 MG TABLET PO SCH (17:26)
[2018-10-12] MEDS: SODIUM CHLORIDE FLUSH 0.9% 10 ML SYRINGE IVP SCH ×2 (06:15→10:03)
[2018-10-12] MEDS: LEVOTHYROXINE 75 MCG TABLET PO SCH (06:15)
[2018-10-12] MEDS: LEVOTHYROXINE 100 MCG TABLET PO SCH (06:15)
[2018-10-12] MEDS: SODIUM CHLORIDE FLUSH 0.9% 10 ML SYRINGE IVP PRN ×3 (06:16→10:08)
[2018-10-12 06:18] LABS: EOSINOPHILS # (AUTO) 0.2 10^3/uL (0.0-0.7); HGB - HEMOGLOBIN 13.5 g/dL (12.0-16.0); LYMPHOCYTES # (AUTO) 1.6 10^3/uL (1.5-3.5); MONOCYTES # (AUTO) 0.4 10^3/uL (0.0-1.0); WHITE BLOOD COUNT 3.7 x10^3/uL (4.8-10.8)
[2018-10-12 06:22] LABS: BASOPHILS % (AUTO) 1.1 %; EOSINOPHILS % (AUTO) 5.2 %; LYMPHOCYTES % (AUTO) 42.6 %; MEAN CORPUSCULAR HEMOGLOBIN 29.6 pg (27.0-31.0); MEAN CORPUSCULAR HGB CONC 34.3 g/dL (32.0-36.0); MEAN CORPUSCULAR VOLUME 86.5 fL (81.0-99.0); MEAN PLATELET VOLUME 7.7 fL (7.9-10.8); MONOCYTES % (AUTO) 10.1 %; NEUTROPHILS # (AUTO) 1.5 10^3/uL (1.5-6.6); PLT - PLATELET COUNT 268 10^3/uL (130-450); RED BLOOD COUNT 4.55 10^6/uL (4.20-5.40)
[2018-10-12 06:30] LABS: BUN - BLOOD UREA NITROGEN 11 mg/dL (6-20); CALCIUM 8.4 mg/dL (8.5-10.3); CARBON DIOXIDE - CO2 32 mmol/L (21-32); CHLORIDE 98 mmol/L (101-111); CREATININE 0.8 mg/dL (0.4-1.0); GFR - MDRD 100 (>89); GLUCOSE 89 mg/dL (70-100); MAGNESIUM 1.9 mg/dL (1.7-2.8); SODIUM 135 mmol/L (135-145)
--- NOTE | 2018-10-12 07:05 | Discharge Plan ---
Discharge Plan Disposition: Home, Self Care Condition: Good Diet: Diabetic Activity Restrictions: No Restrictions Additional Instructions or Follow Up instructions: You were admitted for low calcium levels. You were given IV calcium replacement. Please continue to take your home medications as prescribed prior to your hospitalization. Follow-up with your primary care doctor within 1 week. Follow- up with your rn wellness as previously scheduled. Continue to go to [facility] for your weekly PICC line dressing change and flushing. PLEATING MACHINE OPERATOR and case management are working on obtaining more services for you to have your PICC line flushed more often. No Smoking: If you smoke, Please STOP! Call for help. Follow-up with: Michela Eduardo DNP [Primary Care Provider] -
--- NOTE | 2018-10-12 07:05 | DISCHARGE SUMMARY ---
"Discharge Summary Admit Date: 10/10/18 Discharge Date: 10/12/18 Discharging Provider: Francisca PETERS Primary Care Provider: Michela PETERS Code Status: Attempt Resuscitation Condition at Discharge: Good Discharge Disposition: 01 Home, Self Care - DIAGNOSES Admission Diagnoses: (1) Hypocalcemia (2) Karrie hereditary osteodystrophy (3) Hypoparathyroidism (4) Hypothyroidism (5) Shortness of breath (6) Pleuritic chest pain (7) Pulmonary embolism (8) Pre-diabetes (9) Occluded PICC line (10) Morbid obesity with BMI of 50.0-59.9, adult Discharge Diagnoses with Status of Each Condition: (1) Hypocalcemia, improved (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, stable (3) Hypoparathyroidism, stable (4) Hypothyroidism, stable (5) Shortness of breath, improved (6) Pleuritic chest pain, stable (7) Pulmonary embolism, stable (8) Pre-diabetes, stable (9) Occluded PICC line, improved (10) Morbid obesity with BMI of 50.0-59.9, adult, stable - HPI History of Present Illness: Patient is a 33 year-old female with a past medical history significant of karrie hereditary osteodystrophy, pseudohypoparathroidism Type 1A; asthma; hypothyroidism; hypertension; pre-diabetes; and vitamin D deficiency who presented to the ER today with complaints of about four days of muscle cramps and spasms in her hands and feet. She reports needing to stop walking and sit down. She was recently discharged from [facility] on 09/20/2018, for the same. She was treated with IV calcium gluconate, a PICC line was inserted and she was discharged home. In the interim, she presented to to [facility] ER on 09/22/2018 and was diagnosed with a pulmonary embolism. She was started on xarelto and discharged home from the ER. She last saw her primary care provider on 10/08/2018, a Iman Eduardo. She continues to endorse pleuritic chest pain. She endorses shortness of breath with ambulation, that started today. She denies shortness of breath at rest. She denies wheezing or needing to take her PRN inhaler. Patient reports having a decreased appetite, but has been able to drink plenty of water. She reports diarrhea and nausea that started today with associated abdominal pain. 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 In the ER, the patient reports the nurse was unable to flush her line. Patient wishes to be a full code. - CONSULTS | PROCEDURES Consultations: None - HOSPITAL COURSE Hospital Course: by problem: (1) Hypocalcemia Patient previously admitted 09/18/2018 for symptomatic hypocalcemia. She presented to the ER 10/10/2018 with at least 4 days of hand and feet shaking and cramping. Her calcium was 7.7 and ionized calcium 0.95. She received a dose of calcium gluconate and her calcium improved to 7.9 with ionized calcium of 1.01. Calcium gluconate was increased and on the day of discharge. Her ionized calcium was 1.08. She received a dose of calcium gluconate prior to discharge. Calcium carbonate and rocatrol were continued. (2) Karrie hereditary osteodystrophy Patient admitted with recurrent symptomatic hypocalcemia related to her karrie hereditary osteodystrophy with pseudohypoparathyroidism type 1. Intact PTH 475. A PICC was placed last hospitalization for long-term management of her electrol yte disorder. Patient reports that prior to her move to [facility], she was hospitalized roughly every 3 months for symptoms related to hypocalcemia. She is scheduled to see an endorcrinologist on 11/17/2018. (3) Hypothyroidism Patient's TSH 09/19/2018 3.64. Her home dose of synthroid was continued. Qualifiers: Hypothyroidism type: acquired Qualified Code(s): E03.9 - Hypothyroidism, unspecified (4) Shortness of breath Patient reports shortness of breath with ambulation requiring her to sit down and rest. She denies shortness of breath at rest. She denies wheezing or needing to use her PRN albuteral inhaler. CXR unremarkable, BNP level 5. Symptoms improved and she was able to ambulate without shortness of breath. (5) Pleuritic chest pain With complaints during prior hospitalization and upon presentation to the ER on 09/22/2018. Previously attributed to possible muscle spasms at the level of her chest with non-productive cough and underlying asthma. She reports the pain is in the middle of her chest and does not radiate. This pain is likely related to her pulmonary embolism, as troponin and EKG unremarkable. (6) Pulmonary embolism Patient presented to the ER on 09/22/2018 with pleuritic chest pain. Her D-dimer was elevated, and she underwent a CTPE, that revealed left lower lobe segmental and subsegmental pulmonary emboli with small pulmonary emoli burden. She was started on xarelto in the ED and discharged home. RUE duplex obtained 10/10/2018 negative for PICC line associated DVT. Xarelto was continued during hospi talization. Qualifiers: Pulmonary embolism type: other Chronicity: acute Acute cor pulmonale presence: without acute cor pulmonale Qualified Code(s): I26.99 - Other pulmonary embolism without acute cor pulmonale (7) Pre-diabetes Patient reports having diet-controlled diabetes. She checks her blood sugars at home, with ranges in the 80's-100s. Hgb A1c in 09/2017 4.6%. She was placed on a carbohydrate managed diet. (8) Occluded PICC line Anesthesia placed PICC line during last hospitalization on 09/19/2018 for poor venous access and frequent need for IV calcium replacement. Patient reports she has been going to the [facility] clinic every saturday for dressing changes and flushes. No maintenance flushing has occurred inbetween visits. Anesthesia, Dr. Blackburn evaluated patient 10/10/2018 and was able to unclog one port. She is unable to flush her PICC line herself and her grandma, with whom she lives with is unreliable to teach for flushing. VP ANCILLARY was consulted she was referred to [facility] and [facility] to case management resources. She will continue to be seen at the [facility] for weekly changes and flushing. Qualifiers: Encounter type: initial encounter Qualified Code(s): T82.898A - Other specified complication of vascular prosthetic devices, implants and grafts, initial encounter (9) Morbid obesity with BMI of 50.0-59.9, adult Healthy eating and active lifestyle were encouraged. - ALLERGIES Allergies/Adverse Reactions: Allergies Allergy/AdvReac Type Severity Reaction Status Date / Time latex Allergy Severe Anaphylaxis Verified 10/10/18 17:06 metformin Allergy Severe Anaphylaxis Verified 10/10/18 17:06 sertraline [From Zoloft] Allergy Severe Anaphylaxis Verified 10/10/18 17:06 - MEDICATIONS Home Medications: Ambulatory Orders Medication Instructions Recorded Confirmed Calcitriol [Rocaltrol] 1.5 mcg PO DAILY #180 capsule 09/12/18 10/10/18 Cetirizine [ZyrTEC] 10 mg PO DAILY #30 tablet 09/12/18 10/10/18 Cholecalciferol [Vitamin D3] 5,000 unit PO DAILY #30 capsule 09/12/18 10/10/18 Docusate Sodium 100 mg PO BID #60 capsule 09/12/18 10/10/18 Fluticasone/Salmeterol [Advair 1 puffs INH BID #60 blst.w.dev 09/12/18 10/10/18 500-50 Diskus] Levothyroxine Sodium [Synthroid] 175 mcg PO QDAC #30 tablet 09/12/18 10/10/18 Montelukast [Singulair] 10 mg PO DAILY #30 tablet 09/12/18 10/10/18 Calcium Carbonate [Tums (Calcium 1,000 mg PO BID #120 tablet 09/20/18 10/10/18 Carbonate 500mg)] Cyclobenzaprine [Flexeril] 10 mg PO TID PRN #90 tablet 09/20/18 10/10/18 Hydrocodone/Acetaminophen 1 - 2 each PO Q6H PRN #10 tablet 09/22/18 10/10/18 [Hydrocodone-Acetamin 5-325 mg] Magnesium Oxide 250 mg PO DAILY 09/22/18 10/10/18 Rivaroxaban [Xarelto] 20 mg PO DAILY #30 tablet 09/22/18 10/10/18 Amitriptyline [Elavil] 25 mg PO QPM 10/10/18 10/10/18 Fluticasone [Flonase] 1 sprays MARIKA BID 10/10/18 10/10/18 Norgestimate-Ethinyl Estradiol 1 each PO DAILY 10/10/18 10/10/18 [Uer-Gh-Ahzvmbtr Tablet] - PHYSICAL EXAM AT DISCHARGE General Appearance: positive: No acute distress, Alert (sitting up in the chair) Eyes Bilateral: positive: Normal inspection, PERRL, EOMI ENT: positive: ENT inspection nml, Pharynx nml, No signs of dehydration Neck: positive: Nml inspection, Trachea midline Respiratory: positive: Chest non-tender, No respiratory distress, Breath sounds nml Cardiovascular: positive: Regular rate & rhythm, No murmur, No gallop Peripheral Pulses: positive: 2+ Abdomen: positive: Non-tender, No organomegaly, Nml bowel sounds, No distention Skin: positive: Warm, Dry Neurologic/Psychiatric: positive: Oriented x3, CN's nml (2-12), Motor nml, Sensation nml, Mood/affect nml - LABS Result Diagrams: 10/12/18 06:01 10/12/18 06:01 Other Lab Results: Laboratory Last Values WBC 3.7 x10^3/uL (4.8-10.8) L 10/12/18 06:01 RBC 4.55 10^6/uL (4.20-5.40) 10/12/18 06:01 Hgb 13.5 g/dL (12.0-16.0) 10/12/18 06:01 Hct 39.4 % (37.0-47.0) 10/12/18 06:01 MCV 86.5 fL (81.0-99.0) 10/12/18 06:01 MCH 29.6 pg (27.0-31.0) 10/12/18 06:01 MCHC 34.3 g/dL (32.0-36.0) 10/12/18 06:01 RDW 14.0 % (12.0-15.0) 10/12/18 06:01 Plt Count 268 10^3/uL (130-450) 10/12/18 06:01 MPV 7.7 fL (7.9-10.8) L 10/12/18 06:01 Neut # (Auto) 1.5 10^3/uL (1.5-6.6) 10/12/18 06:01 Lymph # (Auto) 1.6 10^3/uL (1.5-3.5) 10/12/18 06:01 Avery # (Auto) 0.4 10^3/uL (0.0-1.0) 10/12/18 06:01 Eos # (Auto) 0.2 10^3/uL (0.0-0.7) 03/03/19 06:01 Baso # (Auto) 0.0 10^3/uL (0.0-0.1) 10/12/18 06:01 Absolute Nucleated RBC 0.01 x10^3/uL 10/12/18 06:01 Nucleated RBC % 0.2 /100WBC 10/12/18 06:01 VBG pH 7.343 (7.31-7.41) 10/12/18 06:10 Ionized Calcium 1.08 mmol/L (1.15-1.33) L 10/12/18 06:10 Sodium 135 mmol/L (135-145) 10/12/18 06:01 Potassium 4.1 mmol/L (3.5-5.0) 10/12/18 06:01 Chloride 98 mmol/L (101-111) L 10/12/18 06:01 Carbon Dioxide 32 mmol/L (21-32) 10/12/18 06:01 Anion Gap 5.0 (6-13) L 10/12/18 06:01 BUN 11 mg/dL (6-20) 10/12/18 06:01 Creatinine 0.8 mg/dL (0.4-1.0) 10/12/18 06:01 Estimated GFR (MDRD) 100 (>89) 10/12/18 06:01 Glucose 89 mg/dL (70-100) 10/12/18 06:01 Calcium 8.4 mg/dL (8.5-10.3) L 10/12/18 06:01 Ionized Calcium NO 10/12/18 06:01 Phosphorus 4.5 mg/dL (2.5-4.6) 10/12/18 06:01 Magnesium 1.9 mg/dL (1.7-2.8) 10/12/18 06:01 Total Bilirubin 0.5 mg/dL (0.2-1.0) 10/10/18 15:05 AST 26 IU/L (10-42) 10/10/18 15:05 ALT 22 IU/L (10-60) 10/10/18 15:05 Alkaline Phosphatase 84 IU/L (42-121) 10/10/18 15:05 Troponin I < 0.04 ng/mL (<0.49) 10/10/18 15:05 B-Natriuretic Peptide 5 pg/mL (5-100) 10/10/18 15:05 Total Protein 8.2 g/dL (6.7-8.2) 10/10/18 15:05 Albumin 4.1 g/dL (3.2-5.5) 10/10/18 15:05 Globulin 4.1 g/dL (2.1-4.2) 10/10/18 15:05 Albumin/Globulin Ratio 1.0 (1.0-2.2) 10/10/18 15:05 Lipase 53 U/L (22-51) H 10/10/18 15:05 PTH Intact 475 pg/mL (12-88) H 10/10/18 15:05 Urine Color YELLOW 10/10/18 13:50 Urine Clarity CLOUDY (CLEAR) 10/10/18 13:50 Urine pH 5.5 PH (5.0-7.5) 10/10/18 13:50 Ur Specific [place] >=1.030 (1.002-1.030) H 10/10/18 13:50 Urine Protein NEGATIVE mg/dL (NEGATIVE) 10/10/18 13:50 Urine Glucose (UA) NEGATIVE mg/dL (NEGATIVE) 10/10/18 13:50 Urine Ketones TRACE mg/dL (NEGATIVE) 10/10/18 13:50 Urine Occult Blood TRACE-INTA (NEGATIVE) 10/10/18 13:50 Urine Nitrite NEGATIVE (NEGATIVE) 10/10/18 13:50 Urine Bilirubin NEGATIVE (NEGATIVE) 10/10/18 13:50 Urine Urobilinogen 0.2 (NORMAL) E.U./dL (NORMAL) 10/10/18 13:50 Ur Leukocyte Esterase NEGATIVE (NEGATIVE) 10/10/18 13:50 Urine RBC 0-5 /HPF (0-5) 10/10/18 13:50 Urine WBC 4-5 /HPF (0-5) 10/10/18 13:50 Ur Squamous Epith Cells MANY Squamous (<= Few) H 10/10/18 13:50 Urine Bacteria Moderate /HPF (None Seen) H 10/10/18 13:50 Ur Microscopic Review INDICATED 10/10/18 13:50 Urine Culture Comments NOT INDICATED 10/10/18 13:50 - DIAGNOSTIC IMAGING Diagnostic Imaging Results: Final report reviewed Diagnostic Imaging Results Comments: CXR 10/10/2018: No acute disease in the chest. 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
[2018-10-12 08:15] LABS: VBG PH 7.343 (7.31-7.41)
[2018-10-12] MEDS: CHOLECALCIFEROL 5,000 UNIT CAPSULE PO SCH (09:11)
[2018-10-12] MEDS: MONTELUKAST 10 MG TABLET PO SCH (09:12)
[2018-10-12] MEDS: CETIRIZINE 10 MG TABLET PO SCH (09:12)
[2018-10-12] MEDS: CALCITRIOL 0.25 MCG CAPSULE PO SCH (09:12)
[2018-10-12] MEDS: CALCIUM CARBONATE CHEW 500 MG TABLET PO SCH (09:16)
[2018-10-12] MEDS: MAGNESIUM OXIDE 400 MG TABLET PO SCH (09:16)
[2018-10-12] MEDS: POLYETHYLENE GLYCOL 3350 17 GM PACKET PO SCH (09:18)
[2018-10-12] MEDS: FORMOTEROL FUMARATE NEB 20 MCG/2 ML INH SCH (09:38)
[2018-10-12] MEDS: BUDESONIDE 0.5 MG/2 ML NEB INH SCH (09:40)
[2018-10-12] MEDS: CALCIUM GLUCONATE 2,000 MG in SODIUM CHLORIDE 0.9% 50 ML IV SCH (10:03)
[2018-10-12 14:16] VITALS: BP 111/64
== END 2018-10-12 15:15 | disposition home or self-care (01) ==
LOC: EDBD → EDUNIT# → ED 13:48 → OBS 16:35
PROVIDERS: ADMIT Nurse Practitioner; ATTEND Nurse Practitioner
DX: Q78.1 Polyostotic fibrous dysplasia (principal); E20.1 Pseudohypoparathyroidism; E03.9 Hypothyroidism, unspecified; I26.99 Other pulmonary embolism without acute cor pulmonale; R73.03 Prediabetes; T82.898A Other specified complication of vascular prosthetic devices, implants and grafts, initial encounter; R07.81 Pleurodynia; E66.01 Morbid (severe) obesity due to excess calories; Z68.43 Body mass index [BMI] 50.0-59.9, adult; J45.909 Unspecified asthma, uncomplicated; I10 Essential (primary) hypertension; Z79.01 Long term (current) use of anticoagulants
CPT/HCPCS: 36415; 71045; 80048; 80053; 81001; 82330; 83690; 83735; 83880; 83970; 84100; 84484; 85025; 93005; 93971; 94640; 96365; 96366; 96375; 99284; 99285; A9270; G0378; J2997; J7040; J7626; 81003; 83519; 87086; 96374; 99282